=== PATIENT | male | born 1930 | race Caucasian/White ===

== ENCOUNTER 2016-05-01 11:08 | Emergency (ER) | payer MEDICARE, OTHER ==
[2016-05-01] MEDS ORDERED: cefTRIAXone(*) 1 GM in NS 0.9% 50 ML* 50 ML IVPB ONE (14:59)
[2016-05-01 15:06] LABS: Hematocrit 38 % (42-52); Mean Corpuscular HGB Conc 34 g/dl (31-36); Mean Corpuscular Hemoglobin 33 pg (27-31); Mean Corpuscular Volume 96 fL (80-94); Mean Platelet Volume 9 um3 (7.4-10.4); Red Blood Count 3.96 10^6/ul (4.0-5.4); Red Cell Distribution Width 13 % (10.5-15); White Blood Count 8.6 10^3/ul (3.5-10.8)
[2016-05-01 15:20] LABS: Albumin 4.3 g/dL (3.2-5.2); BUN/Creatinine Ratio 27.7 (8-20); Calcium 9.5 mg/dL (8.6-10.3); EGFR African American 97.9 (>60); EGFR Non-African American 76.1 (>60); Globulin 3.3 g/dL (2-4); Potassium 4.2 mmol/L (3.5-5.0); Total Bilirubin 0.7 mg/dL (0.2-1.0); Total Protein 7.6 g/dL (6.4-8.9)
[2016-05-01 15:22] LABS: Troponin I 0.01 ng/mL (<0.04)
--- NOTE | 2016-05-01 15:24 | RAD ---
INDICATION: Sepsis. COMPARISON: Comparison is made with a prior chest x-ray study from January 18, 2015. TECHNIQUE: A portable view of the chest was obtained. FINDINGS: Cardiac and mediastinal contours appear to be within normal limits. The lungs are underinflated and grossly clear. No pleural effusion is seen. IMPRESSION: EXPIRATORY EXAM, NO EVIDENCE FOR ACUTE FINDING.
[2016-05-01] MEDS ORDERED: ceFAZolin 1 GM VIAL(*) IVPB ONE (16:29)
[2016-05-01 17:41] VITALS: BP 117/75
[2016-05-01 19:00] LABS: Erythrocyte Sed Rate 24 mm/Hr (0-40)
--- NOTE | 2016-05-02 00:08 | ED ---
IRay,Danny, scribed for Mehrdad Yuan MD on 05/01/16 at 1631 . Throat Pain/Nasal Congestion - HPI Summary HPI Summary: This 86 y/o male presents to ED for gradually worsening left ear pain since 4 days ago. Pt reports positive erythema and edema at left ear as well as change in hearing. He was previously seen at [facility]. 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 He ears bilat hearing aide. Primary care involves Dr. Peña. - History of Current Complaint Chief Complaint: EDEarPain Time Seen by Provider: 05/01/16 14:44 Hx Obtained From: Patient, Family/Director Of Instructional Technology - present at bedside Onset/Duration: Gradual Onset Severity: Mild Associated Signs And Symptoms: Positive: Negative Cough: None - Allergies/Home Medications Allergies/Adverse Reactions: Allergies Allergy/AdvReac Type Severity Reaction Status Date / Time No Known Allergies Allergy Verified 12/06/15 11:24 PMH/Surg Hx/FS Hx/Imm Hx Cardiovascular History: Denies: Hx Hypertension, Hx Pacemaker/ICD, Other Cardiovascular Problems/ Disorders Respiratory History: Denies: Other Respiratory Problems/Disorders GI History: Reports: Hx Gastroesophageal Reflux Disease - OCCASSIONAL Sx, TAKES OMEPRAZOLE QHS Musculoskeletal History: Reports: Hx Arthritis - STATES MILD, NO PARTICULAR AREAS OF DISCOMFORT, Other Musculoskeletal History - SPINAL STENOSIS Sensory History: Reports: Hx Cataracts - LEFT EYE SURGERY PENDING, Hx Contacts or Glasses - READING GLASSES, Hx Hearing Aid - BILATERAL Opthamlomology History: Reports: Hx Cataracts - LEFT EYE SURGERY PENDING, Hx Contacts or Glasses - READING GLASSES Psychiatric History: Denies: Hx Panic Disorder - Cancer History Hx Chemotherapy: No - Surgical History Surgery Procedure, Year, and Place: LEFT KNEE [facility]; HERNIA REPAIR [facility] [place]; SHOULDER [facility] Hx Anesthesia Reactions: No Infectious Disease History: No Infectious Disease History: Denies: Traveled Outside the [place] in Last 30 Days - Family History Known Family History: Positive: Other - thyroid dz - Social History Lives: With Family Alcohol Use: Weekly Alcohol Amount: FEW DRINKS/WEEK Substance Use Type: Reports: None Smoking Status (MU): Never Smoked Tobacco Have You Smoked in the Last Year: No Review of Systems Negative: Fever Negative: Erythema Positive: Ear Ache - left sided, Other - "change in hearing" Negative: Chest Pain Negative: Shortness Of Breath, Cough Negative: Abdominal Pain, Nausea Negative: dysuria Positive: Edema - left ear. Negative: Myalgia Positive: Other - erythema at left ear Negative: Weakness Negative: Anxious, Depressed All Other Systems Reviewed And Are Negative: Yes Physical Exam - Summary Physical Exam Summary: Constitutional: Well-developed, Well-nourished, Alert. (-) Distressed Skin: Warm, Dry HENT: Normocephalic; Atraumatic. TM intact and external ear canal patent and normal at left ear. Eyes: Conjunctiva normal Neck: Musculoskeletal ROM normal neck. Lymph: (-) Cervical adenopathy Neuro: Alert, Oriented x3 Psych: Mood and affect Normal No salivary or parotid gland swelling. No pain with tugging on tragus. No ear erythema. Erythema of the left upper cheek/zygoma, no adenopathy. No trismus. EOMI without pain Triage Information Reviewed: Yes Vital Signs On Initial Exam: Initial Vitals Temp Pulse Resp BP Pulse Ox 97.6 F 55 16 146/61 100 05/01/16 11:10 05/01/16 11:10 05/01/16 11:10 05/01/16 11:10 05/01/16 11:10 Vital Signs Reviewed: Yes - [place] Coma Scale Coma Scale Total: 15 Diagnostics - Vital Signs Vital Signs Temp Pulse Resp BP Pulse Ox 05/01/16 13:04 97.7 F 55 20 146/69 100 05/01/16 12:27 98.8 F 88 20 130/60 96 05/01/16 11:10 97.6 F 55 16 146/61 100 - Laboratory Lab Results: Lab Results 05/01/16 05/01/16 05/01/16 Range/Units 14:50 14:50 14:50 WBC 8.6 (3.5-10.8) 10^3/ul RBC 3.96 L (4.0-5.4) 10^6/ul Hgb 13.0 L (14.0-18.0) g/dl Hct 38 L (42-52) % MCV 96 H (80-94) fL MCH 33 H (27-31) pg MCHC 34 (31-36) g/dl RDW 13 (10.5-15) % Plt Count 154 (150-450) 10^3/ul MPV 9 (7.4-10.4) um3 Neut % (Auto) 63.1 (38-83) % Lymph % (Auto) 25.8 (25-47) % [place] % (Auto) 9.7 H (1-9) % Eos % (Auto) 1.0 (0-6) % Baso % (Auto) 0.4 (0-2) % Absolute Neuts (auto) 5.4 (1.5-7.7) 10^3/ul Absolute Lymphs (auto) 2.2 (1.0-4.8) 10^3/ul Absolute Monos (auto) 0.8 (0-0.8) 10^3/ul Absolute Eos (auto) 0.1 (0-0.6) 10^3/ul Absolute Basos (auto) 0 (0-0.2) 10^3/ul Absolute Nucleated RBC 0 10^3/ul Nucleated RBC % 0 INR (Anticoag Therapy) 0.91 (0.89-1.11) APTT 24.8 L (26.0-36.3) seconds Sodium 136 (133-145) mmol/L Potassium 4.2 (3.5-5.0) mmol/L Chloride 103 (101-111) mmol/L Carbon Dioxide 27 (22-32) mmol/L Anion Gap 6 (2-11) mmol/L BUN 26 H (6-24) mg/dL Creatinine 0.94 (0.67-1.17) mg/dL Est GFR ( Amer) 97.9 (>60) Est GFR (Non-Af Amer) 76.1 (>60) BUN/Creatinine Ratio 27.7 H (8-20) Glucose 90 (70-100) mg/dL Lactic Acid (0.5-2.0) mmol/L Calcium 9.5 (8.6-10.3) mg/dL Total Bilirubin 0.70 (0.2-1.0) mg/dL AST 23 (13-39) U/L ALT 14 (7-52) U/L Alkaline Phosphatase 70 (34-104) U/L Troponin I 0.01 (<0.04) ng/mL Total Protein 7.6 (6.4-8.9) g/dL Albumin 4.3 (3.2-5.2) g/dL Globulin 3.3 (2-4) g/dL Albumin/Globulin Ratio 1.3 (1-3) 05/01/16 Range/Units 14:50 WBC (3.5-10.8) 10^3/ul RBC (4.0-5.4) 10^6/ul Hgb (14.0-18.0) g/dl Hct (42-52) % MCV (80-94) fL MCH (27-31) pg MCHC (31-36) g/dl RDW (10.5-15) % Plt Count (150-450) 10^3/ul MPV (7.4-10.4) um3 Neut % (Auto) (38-83) % Lymph % (Auto) (25-47) % [place] % (Auto) (1-9) % Eos % (Auto) (0-6) % Baso % (Auto) (0-2) % Absolute Neuts (auto) (1.5-7.7) 10^3/ul Absolute Lymphs (auto) (1.0-4.8) 10^3/ul Absolute Monos (auto) (0-0.8) 10^3/ul Absolute Eos (auto) (0-0.6) 10^3/ul Absolute Basos (auto) (0-0.2) 10^3/ul Absolute Nucleated RBC 10^3/ul Nucleated RBC % INR (Anticoag Therapy) (0.89-1.11) APTT (26.0-36.3) seconds Sodium (133-145) mmol/L Potassium (3.5-5.0) mmol/L Chloride (101-111) mmol/L Carbon Dioxide (22-32) mmol/L Anion Gap (2-11) mmol/L BUN (6-24) mg/dL Creatinine (0.67-1.17) mg/dL Est GFR ( Amer) (>60) Est GFR (Non-Af Amer) (>60) BUN/Creatinine Ratio (8-20) Glucose (70-100) mg/dL Lactic Acid 0.8 (0.5-2.0) mmol/L Calcium (8.6-10.3) mg/dL Total Bilirubin (0.2-1.0) mg/dL AST (13-39) U/L ALT (7-52) U/L Alkaline Phosphatase (34-104) U/L Troponin I (<0.04) ng/mL Total Protein (6.4-8.9) g/dL Albumin (3.2-5.2) g/dL Globulin (2-4) g/dL Albumin/Globulin Ratio (1-3) Result Diagrams: 05/01/16 14:50 05/01/16 14:50 Lab Statement: Any lab studies that have been ordered have been reviewed, and results considered in the medical decision making process. - Radiology CXR Xray Interpretation: No Acute Changes - Expiratory exam. No acute finding. EENT Course/Dx - Course Assessment/Plan: This 86 y/o male presents to ED with chief complaint of gradually worsening left ear pain since 4 days ago. PMHx does include skin CA at left ear lobe, and expresses concerns. Bloodwork indicates WBC and lactic acid wnl as well as slightly elevated BUN. Upon examination TM and external canal of left ear both appear normal. At this moment, there is no clinical sign of orbital cellulitis and CT image study is not warranted. Pt will be discharged with keflex and bactrim as well as outpatient f/u with his primary care provider. - Diagnoses Provider Diagnoses: Facial cellulitis Discharge - Discharge Plan Condition: Stable Disposition: HOME Prescriptions: Cephalexin CAP* [Keflex CAP*] 500 mg PO QID #40 cap Sulfamethox/Trimethoprim SS* [Bactrim SS 400/80 TAB*] 1 tab PO BID #20 tab Patient Education Materials: Cephalexin (By mouth), Sulfamethoxazole/ Trimethoprim (By mouth), Cellulitis (ED) Referrals: Brendan Peña MD [Primary Care Provider] - 2 Days Additional Instructions: Return to the emergency department for changing or worsening symptoms The documentation as recorded by the Ray medina Soohyun accurately reflects the service I personally performed and the decisions made by , Mehrdad Yuan MD.
[2016-05-02 08:07] LABS: C Reactive Protein 20.46 mg/L (< 5.00)
== END 2016-05-01 17:39 | disposition home or self-care (01) ==
LOC: ED 11:08
DX: L03.211 Cellulitis of face (principal); H92.02 Otalgia, left ear; L53.9 Erythematous condition, unspecified; Z85.820 Personal history of malignant melanoma of skin
CPT/HCPCS: 36415; 71010; 80053; 83605; 84484; 85025; 85610; 85652; 85730; 86140; 87040; 99285; J0690

== ENCOUNTER 2017-05-31 18:17 | Emergency (ER) | payer MEDICARE, OTHER ==
--- OUTSIDE RECORDS SUMMARY | 2017-05-31 19:08 | XMS REPORT ---
:1930 External Reference #:[id number] Author Organization [facility] Address [address] [place] [address] Phone [phone] Care Team Providers Name Role Phone Ike Chester III, MD Primary Care Physician Unavailable Payers Type Date Identification Numbers Payment Provider Subscriber Medicare Primary Effective: Policy Number: Medicare Saeid Muñoz 1995 [id number] PayID: [id number] [address] [place] [address] Medigap Part B Policy Number: [id number] [employer] Insurance Saeid Muñoz PayID: [id number] [address] [place] [address] Problems Date Description Provider Status Onset: 01/13/2015 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 Active Onset: 02/07/2015 Convalescence after surgery Riaz Post M.D. Active Onset: 08/17/2015 Localized, primary osteoarthritis Nelda Ortega M.D. Active Onset: 08/17/2015 Localized, primary osteoarthritis of the Nelda Ortega M.D. Active pelvic region and thigh Family History Date Family Member(s) Problem(s) Comments General cancer Social History Type Date Description Comments Marital Status Lives With Occupation [employer] Use Drinks 2 Alcoholic Beverages Per Week Smoking Patient has never smoked Recreational Drug Use Denies Drug Use Exercise Type/Frequency Exercises regularly Allergies, Adverse Reactions, Alerts Date Description Reaction Status Severity Comments 06/30/2013 NKDA active Medications Medication Date Status Form Strength Qnty SIG Indications Ordering Provider Flomax Active 8mg 1 bid Unknown 000 Aleve Active Capsules 220mg 2 by mouth Unknown 000 twice a day as needed Omeprazole Active Capsules 20mg 1 by mouth Unknown 000 DR every day Metamucil Active Powder 28.3% as Unknown 000 directed on package daily Vitamin D High Active Capsules 1000Unit 1 by mouth Unknown Potency 000 every day Finasteride Active Tablets 5mg 1 by mouth Unknown 000 every day Multi For Him Active Tablets 1 by mouth Unknown 50+ 000 every day Neomycin/Polym Active Solution 1% 4 drops in Unknown yxin/Hydrocort 000 affected isone (Otic) ear 3 times daily Ipratropium Active Solution 0.06% prn Unknown [place] Nasal 000 [place] Meloxicam Hx Tablets 15mg 60tabs 1 by mouth M16.11 Nelda 016 - every day Jordan, M.D. 017 Aspirin Low Hx Unknown Dose 000 - 015 Medications Administered in Office Medication Date Status Form Strength Qnty SIG Indications Ordering Provider Depomedrol Administered Injection Dirk Mili, 40MG 018 M.D. Depomedrol Administered Injection Dirk Mili, 80MG 012 M.D. Immunizations CPT Code Status Date Vaccine Lot # [id number] Given 01/08/2017 Influenza Virus Vaccine, Quadrivalent, Split, Preservative Free Vital Signs Date Vital Result Comment 05/27/2017 Weight 176.00 lb Heart Rate 79 /min BP Systolic Sitting 122 mmHg BP Diastolic Sitting 60 mmHg O2 % BldC Oximetry 92 % 05/20/2017 Weight 172.00 lb Heart Rate 74 /min BP Systolic 130 mmHg BP Diastolic 72 mmHg Body Temperature 97.9 F O2 % BldC Oximetry 96 % 04/24/2017 Height 68.5 inches 5'8.50" Weight 171.00 lb BP Systolic 120 mmHg BP Diastolic 68 mmHg Respiratory Rate 18 /min Body Temperature 97.2 F Pain Level 1 BMI (Body Mass Index) 25.6 kg/m2 03/21/2017 Height 68.5 inches 5'8.50" Weight 171.00 lb Heart Rate 60 /min BP Systolic Sitting 112 mmHg BP Diastolic Sitting 62 mmHg Body Temperature 98.1 F O2 % BldC Oximetry 98 % BMI (Body Mass Index) 25.6 kg/m2 08/14/2016 Height 68.50 inches 5'8.50" Weight 170.00 lb Heart Rate 58 /min BP Systolic 126 mmHg BP Diastolic 64 mmHg Body Temperature 97.6 F O2 % BldC Oximetry 97 % BMI (Body Mass Index) 25.5 kg/m2 08/17/2015 Height 71 inches 5'11" Weight 185.00 lb Pain Level 8 BMI (Body Mass Index) 25.8 kg/m2 02/28/2015 Height 71 inches 5'11" Weight 182.00 lb Heart Rate 58 /min BP Systolic Sitting 130 mmHg BP Diastolic Sitting 80 mmHg Pain Level 0 BMI (Body Mass Index) 25.4 kg/m2 02/07/2015 Height 71 inches 5'11" Weight 182.00 lb Heart Rate 56 /min BP Systolic Sitting 122 mmHg BP Diastolic Sitting 84 mmHg Pain Level 0 BMI (Body Mass Index) 25.4 kg/m2 01/13/2015 Height 71 inches 5'11" Weight 182.00 lb Heart Rate 54 /min BP Systolic Sitting 124 mmHg BP Diastolic Sitting 70 mmHg Pain Level 1 back/l leg BMI (Body Mass Index) 25.4 kg/m2 05/16/2011 Height 71 inches 5'11" Weight 180.00 lb Heart Rate 65 /min BP Systolic 135 mmHg BP Diastolic 63 mmHg BMI (Body Mass Index) 25.1 kg/m2 Results Test Date Test Result H/L Range Note CBC No Diff 01/18/2015 White Blood Count 6.0 10^3/uL 4.8-10.8 Red Blood Count 4.11 10^6/uL 4.0-5.4 Hemoglobin 13.0 g/dL Low 14.0-18.0 Hematocrit 40 % Low 42-52 Mean Corpuscular Volume 97 fL High 80-94 Mean Corpuscular Hemoglobin 32 pg High 27-31 Mean Corpuscular HGB Conc 33 g/dL 31-36 Red Cell Distribution Width 14 % 10.5-15 Platelet Count 182 10^3/uL 150-450 Mean Platelet Volume 9 um3 7.4-10.4 Basic Metabolic Panel 01/18/2015 Sodium 136 mmol/L 133-145 Potassium 4.5 mmol/L 3.5-5.0 Chloride 104 mmol/L 101-111 Co2 Carbon Dioxide 24 mmol/L 22-32 Anion Gap 8 mmol/L 2-11 Glucose 117 mg/dL High 70-100 Blood Urea Nitrogen 27 mg/dL High 6-24 Creatinine 1.05 mg/dL 0.67-1.17 BUN/Creatinine Ratio 25.7 High 8-20 Calcium 9.0 mg/dL 8.6-10.3 Egfr Non- 67.3 >60 Egfr 86.5 >60 1 1 Because ethnic data is not always readily available, this report includes an eGFR for both -Americans and non- Americans. The National Kidney Disease Education Program (NKDEP) does not endorse the use of the MDRD equation for patients that are not between the ages of 18 and 70, are , have extremes of body size, muscle mass, or nutritional status, or are non- or non-. According to the National Kidney Foundation, irrespective of diagnosis, the stage of the disease is based on the level of kidney function: Stage Description GFR(mL/min/1.73 m(2)) 1 Kidney damage with normal or decreased GFR 90 2 Kidney damage with mild decrease in GFR 60-89 3 Moderate decrease in GFR 30-59 4 Severe decrease in GFR 15-29 5 Kidney failure <15 (or dialysis) Procedures Date CPT Code Description Status 04/24/201748658 Inject/Drain Joint/Bursa Major Completed 01/25/2015 15518 Lopez/Facet/Foraminotomy;Vertebral Segment; Lumbar Completed 01/25/2015 02199 Laminotomy W/Decomp NRV RT,One Interspace,Lumbar Completed 01/18/2015 85992 EKG, Interpretation Only Completed 03/28/2012 52346 Rad Exam; Both Knees, Standing Ap Completed 03/28/201249395 Inject/Drain Joint/Bursa Major Completed 05/16/2011 17393 Xray Knee 3 Views Completed 05/16/2011 59830 Rad Exam; Knee, Ap&L Completed 05/16/2011 41130 Rad Exam; Hip Unilat Comp Completed 05/16/2011 31187 Rad Exam; Hip Unilat Completed 05/16/2011 21009 Rad Exam; Pelvis Completed Encounters Type Date Location Provider CPT E/M Dx Office Visit 05/20/2017 [facility] Internal Medicine Maryam gAuilar, 74564 S43.422A 1:10p - [address] [employer] Office Visit 04/24/2017 [facility] Iker Garces M.D. 41909 M17.12 3:00p Of C.M.A. Office Visit 03/21/2017 [facility] Internal Medicine Ike Chester, 88942 L98.9 2:40p - Roland Sutton Office Visit 08/14/2016 [facility] Internal Medicine Ike Chester, 20418 E03.9 1:40p - Roland Sutton K21.9 N40.0 Z85.828 Office Visit 08/17/2015 8:00a [facility] Of Nelda Ortega M.D. 18424 M16.11 C.M.A. M17.0 M25.551 M25.462 M25.562 Office Visit 01/13/2015 2:30p [facility] Riaz Post, 09531 M51.26 Of Pamela Sutton M48.06 Office Visit 03/28/2012 2:45p [facility] Of Iker Garces M.D. 67909 715.95 C.M.A. 715.96 Office Visit 05/16/2011 9:15a [facility] Of Iker Garces M.D. 18954 715.95 C.M.A. 715.95 715.96 716.95 724.4 715.96 719.45 716.96 Plan of Care No Information Available
--- OUTSIDE RECORDS SUMMARY | 2017-05-31 19:08 | XMS REPORT ---
:1930 External Reference #:[id number] Author Organization [facility] Address [address] [place] [address] Phone [phone] Care Team Providers Name Role Phone Ike Chester III, MD Primary Care Physician Unavailable Payers Type Date Identification Numbers Payment Provider Subscriber Medicare Primary Effective: Policy Number: Medicare Saeid Muñoz 1995 [id number] PayID: [id number] [address] [place] [address] Medigap Part B Policy Number: [id number] A[employer] Insurance Saeid Muñoz PayID: [id number] [address] [place] [address] Problems Date Description Provider Status Onset: 01/13/2015 [...] daily Ipratropium Active Solution 0.06% prn Unknown [place] Nasal 000 [place] Meloxicam Hx Tablets 15mg 60tabs 1 by mouth M16.11 Nelda 016 - every day Jordan, M.D. 017 Aspirin Low Hx Unknown Dose 000 - 015 Medications Administered in Office Medication Date Status Form Strength Qnty SIG Indications Ordering Provider Depomedrol Administered Injection Dirk Mili, 40MG 018 M.D. Depomedrol Administered Injection Dirk Mili, 80MG 012 M.D. Immunizations CPT Code Status Date Vaccine Lot # [id number] Given 01/08/2017 Influenza Virus Vaccine, Quadrivalent, Split, Preservative Free Vital Signs Date Vital Result Comment 05/20/2017 Weight 172.00 lb Heart Rate 74 [...] dialysis) Procedures Date CPT Code Description Status 04/24/201753844 Inject/Drain Joint/Bursa Major Completed 01/25/2015 15722 Lopez/Facet/Foraminotomy;Vertebral Segment; Lumbar Completed 01/25/2015 97099 Laminotomy W/Decomp NRV RT,One Interspace,Lumbar Completed 01/18/2015 62438 EKG, Interpretation Only Completed 03/28/2012 79291 Rad Exam; Both Knees, Standing Ap Completed 03/28/2012 84525 Inject/Drain Joint/Bursa Major Completed 05/16/2011 19465 Xray Knee 3 Views Completed 05/16/2011 46793 Rad Exam; Knee, Ap&L Completed 05/16/2011 33700 Rad Exam; Hip Unilat Comp Completed 05/16/2011 40341 Rad Exam; Hip Unilat Completed 05/16/2011 22952 Rad Exam; Pelvis Completed Encounters Type Date Location Provider CPT E/M Dx Office Visit 04/24/2017 [facility] Iker Garces M.D. 93657 M17.12 3:00p C.M.A. Office Visit 03/21/2017 [facility] Internal Medicine Ike Chester, 89891 L98.9 2:40p - Roland Sutton Office Visit 08/14/2016 [facility] Internal Medicine Ike Chester, 46575 E03.9 1:40p - Roland Sutton K21.9 N40.0 Z85.828 Office Visit 08/17/2015 8:00a [facility] Nelda Ortega M.D. 32772 M16.11 C.M.A. M17.0 M25.551 M25.462 M25.562 Office Visit 01/13/2015 2:30p [facility] Riaz Post, 85817 M51.26 Of Pamela Sutton M48.06 Office Visit 03/28/2012 2:45p [facility] Iker Garces M.D. 44346 715.95 C.M.A. 715.96 Office Visit 05/16/2011 9:15a [facility] Of Iker Garces M.D. 56750 715.95 C.M.A. 715.95 715.96 716.95 724.4 715.96 719.45 716.96 Plan of Care 05/20/2017 - Maryam Aguilar, NPS43.422A Sprain of left rotator cuff capsule, initial encounterComments:Try to ice the left shoulder area for 10 minutes 3 times a day and before bed.Try not to sleep on your left sideElevate your left handTake your Aleve twice a day for one week, take with food and liquidCall back if your symptoms do not improve, we may order Physical Therapy if needed
--- NOTE | 2017-05-31 21:49 | RAD ---
INDICATION: Pain and swelling. COMPARISON: None TECHNIQUE: Duplex interrogation of the left upperextremity was performed. FINDINGS: Deep veins: The visualized jugular, visualized subclavian, axial, brachial, radial, and ulnar are patent. There is normal compressibility, augmentation, and phasic flow. Superficial veins: The cephalic and basilic veins are patent There are no findings of superficial thrombophlebitis. Soft tissues:There are no soft tissue abnormalities. IMPRESSION: No evidence of deep venous thrombosis
[2017-05-31 22:32] LABS: ABS Basophils 0 10^3/ul (0-0.2); ABS Eosinophils 0.2 10^3/ul (0-0.6); ABS Lymphocytes 1.9 10^3/ul (1.0-4.8); ABS Monocytes 0.7 10^3/ul (0-0.8); ABS Nucleated RBC 0 10^3/ul; Eosinophil % 2.9 % (0-6); Hematocrit 34 % (42-52); Hemoglobin 11.2 g/dl (14.0-18.0); Lymphocyte % 32.7 % (25-47); Mean Corpuscular HGB Conc 33 g/dl (31-36); Mean Corpuscular Hemoglobin 31 pg (27-31); Mean Corpuscular Volume 93 fL (80-94); Mean Platelet Volume 8 um3 (7.4-10.4); Nucleated Red Blood Cells % 0; Platelet Count 192 10^3/ul (150-450); Red Blood Count 3.62 10^6/ul (4.0-5.4); Red Cell Distribution Width 13 % (10.5-15); White Blood Count 5.9 10^3/ul (3.5-10.8)
[2017-05-31 22:40] LABS: INR 0.9 (0.77-1.02)
[2017-05-31 22:47] LABS: EGFR Non-African American 66.8 (>60)
[2017-05-31] MEDS ORDERED: Iohexol 350* (CONTRAST) 500 ML MDV IV ONE (23:23)
[2017-06-01] MEDS ORDERED: Levofloxacin TAB* 500 MG PO ONE (01:28)
--- NOTE | 2017-06-01 02:08 | ED ---
David Melo Sixian, scribed for Dangelo Recinos on 05/31/17 at 2112 . Complex/Multi-Sys Presentation - HPI Summary HPI Summary: This patient is an 87 year old M presenting to ED with a chief complaint of swelling in the left hand since 1830 today. The CC is described as tingling sensation in the fingers. The patient rates the pain 0/10 in severity. Symptoms aggravated and alleviated by nothing. Patient reports tingling in left hand and sore shoulders. Patient denies CP, SOB, leg pain. The pt was told by Dr. Tobias to come to the ED for r/o blood clot because one of his blood test came back abnormal, the D-dimmer level was 616 at 1350 today. The pt reports previous swollen feet and ankles. - History Of Current Complaint Chief Complaint: EDGeneral Time Seen by Provider: 05/31/17 20:55 Hx Obtained From: Patient Onset/Duration: Gradual Onset, Lasting Hours, Still Present Timing: Constant, Hours Aggravating Factor(s): nothing Alleviating Factor(s): nothing Associated Signs And Symptoms: Positive: Chest Pain, Other - Patient reports tingling in left hand and sore shoulders. Patient denies CP, SOB, leg pain. - Allergies/Home Medications Allergies/Adverse Reactions: Allergies Allergy/AdvReac Type Severity Reaction Status Date / Time No Known Allergies Allergy Verified 12/06/15 11:24 Home Medications: Home Medications Cholecalciferol TAB* [Vitamin D TAB*] 1,000 unit PO DAILY 05/31/17 [History Confirmed 05/31/17] Finasteride TAB* [Proscar TAB*] 5 mg PO DAILY 05/31/17 [History Confirmed ] Psyllium RICARDO* [Metamucil RICARDO*] 1 pkt PO BID 05/31/17 [History Confirmed 05/31/17 ] PMH/Surg Hx/FS Hx/Imm Hx Cardiovascular History: Denies: Hx Hypertension, Hx Pacemaker/ICD, Other Cardiovascular Problems/ Disorders Respiratory History: Denies: Other Respiratory Problems/Disorders GI History: Reports: Hx Gastroesophageal Reflux Disease - OCCASSIONAL Sx, TAKES OMEPRAZOLE QHS Musculoskeletal History: Reports: Hx Arthritis - STATES MILD, NO PARTICULAR AREAS OF DISCOMFORT, Other Musculoskeletal History - SPINAL STENOSIS Sensory History: Reports: Hx Cataracts - LEFT EYE SURGERY PENDING, Hx Contacts or Glasses - READING GLASSES, Hx Hearing Aid - BILATERAL Opthamlomology History: Reports: Hx Cataracts - LEFT EYE SURGERY PENDING, Hx Contacts or Glasses - READING GLASSES Psychiatric History: Denies: Hx Panic Disorder - Cancer History Hx Chemotherapy: No - Surgical History Surgery Procedure, Year, and Place: LEFT KNEE [facility]; HERNIA REPAIR [facility]; SHOULDER [facility] Hx Anesthesia Reactions: No Infectious Disease History: No Infectious Disease History: Denies: Traveled Outside the [place] in Last 30 Days - Family History Known Family History: Positive: Other - thyroid dz - Social History Alcohol Use: Weekly Alcohol Amount: FEW DRINKS/WEEK Substance Use Type: Reports: None Smoking Status (MU): Never Smoked Tobacco Have You Smoked in the Last Year: No Review of Systems Negative: Fever Negative: Chest Pain Negative: Shortness Of Breath Positive: Other - NEGATIVE: leg pain. POSITIVE: tingling in left hand and sore shoulders All Other Systems Reviewed And Are Negative: Yes Physical Exam - Summary Physical Exam Summary: Appearance: Well appearing, no pain distress Skin: warm, dry, reflects adequate perfusion Head/face: normal Eyes: EOMI, RINA ENT: normal Neck: supple, non-tender Respiratory: CTA, breath sounds present Cardiovascular: RRR, pulses symmetrical Abdomen: non-tender, soft Bowel: present Musculoskeletal: normal, strength/ROM intact, swelling of left hand Neuro: normal, sensory motor intact, A&Ox3 Triage Information Reviewed: Yes Vital Signs On Initial Exam: Initial Vitals Temp Pulse Resp BP Pulse Ox 97.7 F 70 18 139/60 96 05/31/17 18:31 05/31/17 18:31 05/31/17 18:31 05/31/17 18:31 05/31/17 18:31 Vital Signs Reviewed: Yes Diagnostics - Vital Signs Vital Signs Temp Pulse Resp BP Pulse Ox 05/31/17 20:51 80 93 05/31/17 20:50 122/58 05/31/17 18:31 97.7 F 70 18 139/60 96 - Laboratory Lab Results: Lab Results 05/31/17 05/31/17 05/31/17 Range/Units 22:20 22:20 22:20 WBC 5.9 (3.5-10.8) 10^3/ul RBC 3.62 L (4.0-5.4) 10^6/ul Hgb 11.2 L (14.0-18.0) g/dl Hct 34 L (42-52) % MCV 93 (80-94) fL MCH 31 (27-31) pg MCHC 33 (31-36) g/dl RDW 13 (10.5-15) % Plt Count 192 (150-450) 10^3/ul MPV 8 (7.4-10.4) um3 Neut % (Auto) 51.7 (38-83) % Lymph % (Auto) 32.7 (25-47) % [place] % (Auto) 12.1 H (0-7) % Eos % (Auto) 2.9 (0-6) % Baso % (Auto) 0.6 (0-2) % Absolute Neuts (auto) 3.0 (1.5-7.7) 10^3/ul Absolute Lymphs (auto) 1.9 (1.0-4.8) 10^3/ul Absolute Monos (auto) 0.7 (0-0.8) 10^3/ul Absolute Eos (auto) 0.2 (0-0.6) 10^3/ul Absolute Basos (auto) 0 (0-0.2) 10^3/ul Absolute Nucleated RBC 0 10^3/ul Nucleated RBC % 0 INR (Anticoag Therapy) 0.90 (0.77-1.02) APTT 26.5 (26.0-36.3) seconds Sodium 135 (133-145) mmol/L Potassium 4.3 (3.5-5.0) mmol/L Chloride 103 (101-111) mmol/L Carbon Dioxide 27 (22-32) mmol/L Anion Gap 5 (2-11) mmol/L BUN 26 H (6-24) mg/dL Creatinine 1.05 (0.67-1.17) mg/dL Est GFR ( Amer) 85.9 (>60) Est GFR (Non-Af Amer) 66.8 (>60) BUN/Creatinine Ratio 24.8 H (8-20) Glucose 105 H (70-100) mg/dL Calcium 9.2 (8.6-10.3) mg/dL Total Bilirubin 0.40 (0.2-1.0) mg/dL AST 23 (13-39) U/L ALT 12 (7-52) U/L Alkaline Phosphatase 75 (34-104) U/L Total Protein 6.7 (6.4-8.9) g/dL Albumin 3.6 (3.2-5.2) g/dL Globulin 3.1 (2-4) g/dL Albumin/Globulin Ratio 1.2 (1-3) Result Diagrams: 05/31/17 22:20 05/31/17 22:20 Lab Statement: Any lab studies that have been ordered have been reviewed, and results considered in the medical decision making process. - CT CTA chest CT Interpretation Completed By: Radiologist - CT CTA chest reveals negative for pulmonary embolus, Negative for thoracic aortic aneurysm or dissection. However , there is a left lower lob infiltrate/pneumonia. Milder infiltrate notes in the medical aspect of the right lower lobe. Patchy minimal peripheral infiltrate notes in the lateral aspect of the right upper love. Some irregular pleural thickening Ieft upper love. Cardiomegaly. Indeterminate, 2.3 cm low density lesion in the dome of the liver. Recommend follow up to rule out neoplasm. Hiatal hernia. ED physician has reviewed this radiology report. - Additional Comments Diagnostic Additional Comments: The venous doppler study showed no evidence of deep venous thrombosis. ED physician has reviewed this radiology report. Complex Multi-Symp Course/Dx Assessment/Plan: This patient is an 87 year old M presenting to ED with a chief complaint of swelling in the left hand since 1830 today. Radiology included a Venous Doppler study which showed no evidence of deep venous thrombosis and a chest CTA which reveals negative for pulmonary embolus, Negative for thoracic aortic aneurysm or dissection. However, there is a left lower lob infiltrate/ pneumonia. Milder infiltrate notes in the medical aspect of the right lower lobe. Patchy minimal peripheral infiltrate notes in the lateral aspect of the right upper love. Some irregular pleural thickening Ieft upper love. Cardiomegaly. Indeterminate, 2.3 cm low density lesion in the dome of the liver. Recommend follow up to rule out neoplasm. Hiatal hernia. ED physician has reviewed this radiology report. Bloodwork was obtained. The patient is diagnosed with pneumonia. The patient is instructed to follow up with primary care. Pt was informed about the mass on his liver and to follow up as an outpatient. - Diagnoses Differential Diagnoses/HQI/PQRI: Other - r/o pe Provider Diagnoses: Pneumonia Discharge - Discharge Plan Condition: Stable Disposition: HOME Prescriptions: Levofloxacin TAB* [Levaquin TAB*] 500 mg PO DAILY #9 tab Patient Education Materials: Pneumonia (ED) Referrals: Ike Chester MD [Primary Care Provider] - 3 Days Additional Instructions: RETURN TO THE EMERGENCY DEPARTMENT FOR CHANGING OR WORSENING SYMPTOMS. The documentation as recorded by the David medina Sixian accurately reflects the service I personally performed and the decisions made by Grisel crespo Emmanuel.
[2017-06-01 02:20] VITALS: BP 00/00
--- NOTE | 2017-06-01 09:04 | RAD ---
Indication: Positive d-dimer. Contrast: Administered 68.3 ml of OMNIPAQUE 350 mg/ml CTA of the chest was performed after IV contrast administration. Coronal and sagittal reconstructed images were obtained. The pulmonary arterial tree is well opacified. There are no filling defects present to suggest pulmonary embolus. The aorta demonstrates no aortic dissection or aneurysmal dilatation. Atherosclerotic aorta is noted. There is no significant mediastinal or hilar adenopathy. Inferior thyroid lobes are unremarkable. The lung valdovinos demonstrate some scarring in the periphery of the left upper lobe and right upper lobe. Airspace disease with alveolitis is noted in the left lower lobe posteriorly. There is poor inspiration. The heart demonstrates no pericardial effusion. The liver demonstrates 2.0 cm low density lesion in the dome of the right lobe of liver. Correlation with ultrasound of the liver is suggested. No intrahepatic ductal dilation is noted. The spleen is normal in size. No adrenal lesions are noted. Calcified granuloma is noted. IMPRESSION: Left lower lobe airspace disease consistent with left lower lobe pneumonia. No mediastinal or hilar pathology is noted. Liver lesion is noted in the dome of right lobe of liver for which ultrasound is suggested. No evidence of embolus or aortic dissection is noted.
== END 2017-06-01 02:27 | disposition home or self-care (01) ==
LOC: ED 18:17
DX: J18.9 Pneumonia, unspecified organism (principal); R07.9 Chest pain, unspecified
CPT/HCPCS: 36415; 71275; 80053; 85025; 85610; 85730; 99283; Q9967

== ENCOUNTER 2017-06-26 21:12 | Observation (INO) | payer MEDICARE, OTHER ==
[2017-06-26] MEDS ORDERED: NS 0.9% 1000 ML*IV.FLUID IV ONE (22:12)
[2017-06-26] MEDS ORDERED: Acetaminophen TAB* 325 MG PO ONE (22:12)
[2017-06-26] MEDS ORDERED: Ibuprofen TAB* 600 MG PO ONE (22:13)
[2017-06-26] MEDS ORDERED: Hydrocortisone INJ* 100 MG VIAL IV ONE (22:14)
[2017-06-26] MEDS ORDERED: Piperacillin/Tazobac ADVAN(*) 3.375 GM in NS 0.9% 100 ML* 100 ML IVPB ONE (22:14)
--- OUTSIDE RECORDS SUMMARY | 2017-06-26 22:51 | XMS REPORT ---
:1930 External Reference #:[id number] Author Organization [facility] Address [address] [place] [address] Phone [phone] Care Team Providers Name Role Phone Ike Chester III, MD Primary Care Physician Unavailable Payers Type Date Identification Numbers Payment Provider Subscriber Medicare Primary Effective: Policy Number: Medicare Saeid Muñoz 1995 [id number] PayID: [id number] [address] [place] [address] Medigap Part B Policy Number: [id number] [employer] Saeid Muñoz PayID: [id number] [address] [place] [address] Problems Date Description Provider Status Onset: 01/13/2015 [...] Form Strength Qnty SIG Indications Ordering Provider Levothyroxine 06/05/ Active Tablets 25mcg 45tabs 1 by mouth E03.9 Ike Andrews Sodium 2018 every day Lesley Chester Prednisone 06/05/ Active Tablets 20mg 20tabs 1 by mouth R60.0 Ike Andrews 2018 every day Lesley Chester Flomax / Active 8mg 1 bid Unknown 0000 Omeprazole / Active Capsules 20mg 1 by mouth Unknown 0000 DR every day Metamucil / Active Powder 28.3% as Unknown 0000 directed on package daily Vitamin D High / Active Capsules 1000Unit 1 by mouth Unknown Potency 0000 every day Finasteride / Active Tablets 5mg 1 by mouth Unknown 0000 every day Multi For Him / Active Tablets 1 by mouth Unknown 50+ 0000 every day Neomycin/Polymy / Active Solution 1% 4 drops in Unknown fior/Hydrocortis 0000 affected one (Otic) ear 3 times daily Ipratropium / Active Solution 0.06% prn Unknown [place] Nasal 0000 [place] Levofloxacin / Active Tablets 500mg Take 1 Unknown 0000 Tablet By Mouth Every Day Motrin Ib / Active Tablets 200mg 1-2 twice Unknown 0000 a day as needed Meloxicam 08/16/ Hx Tablets 15mg 60tabs 1 by mouth M16.11 Nelda 2015 - every day Jordan 03/20/ M.DJose Alfredo 2017 Aspirin Low / Hx Unknown Dose 0000 - 2014 Aleve / Hx Capsules 220mg 2 by mouth Unknown 0000 - twice a 06/05/ day as 2018 needed Medications Administered in Office Medication Date Status Form Strength Qnty SIG Indications Ordering Provider Depomedrol Administered Injection Dirk Mili, 40MG 018 M.D. Depomedrol Administered Injection Dirk Mili, 80MG 012 M.D. Immunizations CPT Code Status Date Vaccine Lot # [id number] Given 01/08/2017 Influenza Virus Vaccine, Quadrivalent, Split, Preservative Free Vital Signs Date Vital Result Comment 06/05/2017 Weight 175.00 lb Heart Rate 57 /min BP Systolic Sitting 138 mmHg BP Diastolic Sitting 50 mmHg Body Temperature 97.2 F O2 % BldC Oximetry 93 % 05/27/2017 Weight 176.00 lb Heart Rate 79 [...] Test Date Test Result H/L Range Note Laboratory test finding 05/31/2017 Centromere Auto Abs <0.2 U 1 Ribosome P Antibodies, Igg <0.2 U 2 Anti Double Stranded Dna Ab 16.0 IU/mL 3 Interpretation See Comment 4 Trini Igg AB Reflex 05/31/2017 SS-A/Ro Antibody <0.2 U 5 SS-B/La Antibody <0.2 U 6 Sm (Reese) IgG Antibody <0.2 U 7 U1-nRNP Antibody 0.4 U 8 Scl-70 (Scleroderma) Antibody <0.2 U 9 Hawa-1 Antibody <0.2 U 10 Laboratory test 05/31/2017 D Dimer Quantitative 616 ng/mL High Less Than 230 11 finding CBC Auto Diff 05/31/2017 White Blood Count 7.1 10^3/uL 3.5-10.8 Red Blood Count 3.78 10^6/uL Low 4.0-5.4 Hemoglobin 11.8 g/dL Low 14.0-18.0 Hematocrit 35 % Low 42-52 Mean Corpuscular Volume 94 fL 80-94 Mean Corpuscular Hemoglobin 31 pg 27-31 Mean Corpuscular HGB Conc 33 g/dL 31-36 Red Cell Distribution Width 13 % 10.5-15 Platelet Count 197 10^3/uL 150-450 Mean Platelet Volume 9 um3 7.4-10.4 Abs Neutrophils 5.0 10^3/uL 1.5-7.7 Abs Lymphocytes 1.4 10^3/uL 1.0-4.8 Abs Monocytes 0.6 10^3/uL 0-0.8 Abs Eosinophils 0.1 10^3/uL 0-0.6 Abs Basophils 0 10^3/uL 0-0.2 Abs Nucleated RBC 0 10^3/uL Granulocyte % 70.8 % 38-83 Lymphocyte % 19.8 % Low 25-47 Monocyte % 7.9 % High 0-7 Eosinophil % 0.9 % 0-6 Basophil % 0.6 % 0-2 Nucleated Red Blood Cells % 0 Laboratory test finding 05/31/2017 Lyme Disease Serology Negative Negative 12 Uric Acid 8.4 mg/dL High 4.4-7.6 Connective Tissue Panel 05/31/2017 Anti-Nuclear Antibody 3.2 U High 13 Cyclic Citrullinated Peptide <15.6 U 14 Comp Metabolic Panel 05/31/2017 Sodium 135 mmol/L 133-145 Potassium 4.3 mmol/L 3.5-5.0 Chloride 103 mmol/L 101-111 Co2 Carbon Dioxide 27 mmol/L 22-32 Anion Gap 5 mmol/L 2-11 Glucose 105 mg/dL High 70-100 Blood Urea Nitrogen 26 mg/dL High 6-24 Creatinine 1.05 mg/dL 0.67-1.17 BUN/Creatinine Ratio 24.8 High 8-20 Calcium 9.2 mg/dL 8.6-10.3 Total Protein 6.7 g/dL 6.4-8.9 Albumin 3.6 g/dL 3.2-5.2 Globulin 3.1 g/dL 2-4 Albumin/Globulin Ratio 1.2 1-3 Total Bilirubin 0.40 mg/dL 0.2-1.0 Alkaline Phosphatase 75 U/L 34-104 Alt 12 U/L 7-52 Ast 23 U/L 13-39 Egfr Non- 66.8 >60 Egfr 85.9 >60 15 Laboratory test finding 05/31/2017 Partial Thrombo Time 26.5 seconds 26.0 -36.3 PTT Inr/Protime 05/31/2017 Inr 0.90 0.77-1.02 CBC Auto Diff 05/31/2017 White Blood Count 5.9 10^3/uL 3.5-10.8 Red Blood Count 3.62 10^6/uL Low 4.0-5.4 Hemoglobin 11.2 g/dL Low 14.0-18.0 Hematocrit 34 % Low 42-52 Mean Corpuscular Volume 93 fL 80-94 Mean Corpuscular Hemoglobin 31 pg 27-31 Mean Corpuscular HGB Conc 33 g/dL 31-36 Red Cell Distribution Width 13 % 10.5-15 Platelet Count 192 10^3/uL 150-450 Mean Platelet Volume 8 um3 7.4-10.4 Abs Neutrophils 3.0 10^3/uL 1.5-7.7 Abs Lymphocytes 1.9 10^3/uL 1.0-4.8 Abs Monocytes 0.7 10^3/uL 0-0.8 Abs Eosinophils 0.2 10^3/uL 0-0.6 Abs Basophils 0 10^3/uL 0-0.2 Abs Nucleated RBC 0 10^3/uL Granulocyte % 51.7 % 38-83 Lymphocyte % 32.7 % 25-47 Monocyte % 12.1 % High 0-7 Eosinophil % 2.9 % 0-6 Basophil % 0.6 % 0-2 Nucleated Red Blood Cells % 0 Laboratory test finding 05/27/2017 B-Type Natriuretic Peptide BNP 61 pg/mL 16 Erythrocyte Sed Rate 47 mm/Hr High 0-40 C Reactive Protein 17.92 mg/L High < 5.00 17 Comp Metabolic Panel 05/27/2017 Sodium 135 mmol/L 133-145 Potassium 4.5 mmol/L 3.5-5.0 Chloride 101 mmol/L 101-111 Co2 Carbon Dioxide 26 mmol/L 22-32 Anion Gap 8 mmol/L 2-11 Glucose 87 mg/dL 70-100 Blood Urea Nitrogen 26 mg/dL High 6-24 Creatinine 0.96 mg/dL 0.67-1.17 BUN/Creatinine Ratio 27.1 High 8-20 Calcium 9.4 mg/dL 8.6-10.3 Total Protein 7.0 g/dL 6.4-8.9 Albumin 3.9 g/dL 3.2-5.2 Globulin 3.1 g/dL 2-4 Albumin/Globulin Ratio 1.3 1-3 Total Bilirubin 0.60 mg/dL 0.2-1.0 Alkaline Phosphatase 84 U/L 34-104 Alt 14 U/L 7-52 Ast 23 U/L 13-39 Egfr Non- 74.1 >60 Egfr 95.3 >60 18 Laboratory test finding 05/27/2017 TSH (Thyroid Stim 7.77 mcIU/mL High 0.34-5.60 Horm) Free T4 (Free Thyroxine) 0.79 ng/dL 0.61-1.12 CBC No Diff 01/18/2015 White Blood Count [...] Egfr Non- 67.3 >60 Egfr 86.5 >60 19 1 REFERENCE VALUE <1.0 (Negative) Test Performed by: [place] [id number] 2 REFERENCE VALUE <1.0 (Negative) Test Performed by: [place] [id number] 3 Negative for dsDNA antibody by enzyme immunoassay. No further testing recommended. 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 Test Performed by: [address] [id number] 5 REFERENCE VALUE <1.0 (Negative) 6 REFERENCE VALUE <1.0 (Negative) 7 REFERENCE VALUE <1.0 (Negative) 8 REFERENCE VALUE <1.0 (Negative) 9 REFERENCE VALUE <1.0 (Negative) 10 REFERENCE VALUE <1.0 (Negative) Test Performed by: [facility] [address] [place] [address] 11 Please note: The following may produce a false positive D Dimer test: - Rheumatoid factor greater than 60 IU/ml - Plasma hemoglobin greater than 0.05 gm/dl - Bilirubin greater than 50 mg/dl - Lipids greater than 1000 mg/dl - FDP greater than 20 ug/ml 12 Serologic response to B. burgdorferi infection is not detected, but cannot rule out early infection during which low or undetectable antibody levels to B. burgdorferi may be present. If clinically indicated, a new serum specimen should be submitted in 7-14 days. Test Performed by: [facility] [employer] [facility] [address] [place] [address] 13 Interpretation: Positive (3.0-5.9) REFERENCE VALUE <=1.0 (Negative) 14 REFERENCE VALUE <20.0 (Negative) Test Performed by: [address] [address] 15 Because ethnic data is not always readily [...] 15-29 5 Kidney failure <15 (or dialysis) 16 >100 to <200 pg/mL: likely compensated congestive heart failure (CHF) 200 to 400 pg/mL: likely moderate CHF >400 pg/mL: likely moderate to severe CHF 17 Acute inflammation: >10.00 18 Because ethnic data is not always readily [...] 15-29 5 Kidney failure <15 (or dialysis) 19 Because ethnic data is not always readily [...] dialysis) Procedures Date CPT Code Description Status 04/24/201763895 Inject/Drain Joint/Bursa Major Completed 01/25/2015 52564 Lopez/Facet/Foraminotomy;Vertebral Segment; Lumbar Completed 01/25/2015 82078 Laminotomy W/Decomp NRV RT,One Interspace,Lumbar Completed 01/18/2015 51763 EKG, Interpretation Only Completed 03/28/2012 42827 Rad Exam; Both Knees, Standing Ap Completed 03/28/2012 28528 Inject/Drain Joint/Bursa Major Completed 05/16/2011 49724 Xray Knee 3 Views Completed 05/16/2011 43888 Rad Exam; Knee, Ap&L Completed 05/16/2011 40352 Rad Exam; Hip Unilat Comp Completed 05/16/2011 90659 Rad Exam; Hip Unilat Completed 05/16/2011 46441 Rad Exam; Pelvis Completed Encounters Type Date Location Provider CPT E/M Dx Office Visit 05/27/2017 11:40a [facility] Internal Medicine Ike Chester, 45717 R60.0 - Roland Sutton E03.9 Office Visit 05/20/2017 1:10p [facility] Internal Maryam Aguilar, 49840 S43.422A Medicine - [address] APPOINTMENT MANAGER Office Visit 04/24/2017 3:00p [facility] Iker Garces M.D. 31683 M17.12 Of C.M.A. Office Visit 03/21/2017 2:40p [facility] Internal Ike Chester, 58312 L98.9 Marquita Watkins M.D. Office Visit 08/14/2016 1:40p [facility] Internal Ike Chester, 05071 E03.9 Marquita Watkins M.D. K21.9 N40.0 Z85.828 Office Visit 08/17/2015 8:00a [facility] Of Nelda Ortega M.D. 40212 M16.11 C.M.A. M17.0 M25.551 M25.462 M25.562 Office Visit 01/13/2015 2:30p [facility]surgery Services Riaz Fierrocalf, 36325 M51.26 Of Pamela Sutton M48.06 Office Visit 03/28/2012 2:45p [facility] Of Iker Garces M.D. 66387 715.95 C.M.A. 715.96 Office Visit 05/16/2011 9:15a [facility] Of Iker Garces M.D. 80960 715.95 C.M.A. 715.95 715.96 716.95 724.4 715.96 719.45 716.96 Plan of Care Future Appointment(s):07/04/2017 9:00 am - Ike Chester M.D. at [facility] Internal Medicine - Nunkwdczt47/28/2018 - Ike Chester M.D.R60.0 Localized edemaNew Medication:Prednisone 20 mgReferral:Fransisco Rodrigues MD, KowleuomhxmuJ07.9 Hypothyroidism, unspecifiedNew Medication:Levothyroxine Sodium 25 mcgNew Labs:Free T4 (Free Thyroxine)TSH (Thyroid Stim Horm)Follow up: Start low dose replacement Rx and recheck thyroid labs in 4 wisevK93.2 Abnormal findings on dx imaging of liver and biliary tractNew Xrays:Chest PA & Lat 2 VWSUS Abdomen CompleteComments:? liver lesion on CT and ? LLL infiltrate; pt on antibiotic Rx now. Check abd ultrasound for the liver and pt's previous L sided kidney stone. Recheck CXR in 1 month
[2017-06-26 23:24] LABS: Urine Appearance Clear; Urine Blood Negative (Negative); Urine Color Yellow; Urine Ketones Negative (Negative); Urine Protein Negative (Negative); Urine Specific Gravity 1.015 (1.010-1.030); Urine Urobilinogen Negative (Negative)
[2017-06-26 23:37] LABS: ABS Basophils 0 10^3/ul (0-0.2); ABS Eosinophils 0 10^3/ul (0-0.6); ABS Lymphocytes 1.1 10^3/ul (1.0-4.8); ABS Monocytes 0.7 10^3/ul (0-0.8); ABS Neutrophils 7.2 10^3/ul (1.5-7.7); ABS Nucleated RBC 0 10^3/ul; Eosinophil % 0.1 % (0-6); Hematocrit 37 % (42-52); Hemoglobin 12.4 g/dl (14.0-18.0); Lymphocyte % 12.5 % (25-47); Mean Corpuscular HGB Conc 33 g/dl (31-36); Mean Corpuscular Hemoglobin 31 pg (27-31); Mean Corpuscular Volume 94 fL (80-94); Mean Platelet Volume 8.8 um3 (7.4-10.4); Nucleated Red Blood Cells % 0.1; Platelet Count 124 10^3/ul (150-450); Red Blood Count 3.96 10^6/ul (4.0-5.4); Red Cell Distribution Width 14 % (10.5-15)
[2017-06-26 23:40] LABS: EGFR Non-African American 57.3 (>60); INR 0.95 (0.77-1.02)
[2017-06-26] MEDS ORDERED: Oseltamivir CAP* 75 MG CAP PO ONE (23:54)
--- NOTE | 2017-06-27 00:17 | ED ---
Aidee Melo Rebecca, scribed for Austen Troncoso MD on 06/27/17 at 0003 . Shortness of Breath - HPI Summary HPI Summary: Pt is an 87 y/o M who presents to ED c/o SOB. reports that a few weeks ago , the pt was diagnosed with PNA without necessitating admission. Then, a few days ago he and his both became ill with a "cold." This afternoon, the pt began experiencing chills, SOB and visual hallucinations while being "incoherent." Sx aggravated and alleviated by nothing. Denies V/D and any pain. remarks that usually the pt has no issues with mentation. Pt was also treated a few weeks ago for swelling in the extremities which was treated with 20 mg Prednisone which has now been tapered down to 10 mg, with the last dose having been taken this morning. - History of Current Complaint Chief Complaint: EDShortnessOfBreath Time Seen by Provider: 06/26/17 22:11 Hx Obtained From: Patient, Family/Hide And Skin Classer - Onset/Duration: Lasting Hours, Still Present Dyspnea At: Rest Aggrevating Factors: Nothing Alleviating Factors: Nothing Associated Signs & Symptoms: Chills - Allergy/Home Medications Allergies/Adverse Reactions: Allergies Allergy/AdvReac Type Severity Reaction Status Date / Time No Known Allergies Allergy Verified 12/06/15 11:24 Home Medications: Home Medications Naproxen Sodium [Aleve] 220 mg PO BID 06/26/17 [History Confirmed 06/26/17] Omeprazole CAP* [Prilosec CAP* 20 MG] 20 mg PO DAILY 06/26/17 [History Confirmed 06/26/17] predniSONE TAB* [Deltasone TAB*] 10 mg PO DAILY 06/26/17 [History Confirmed ] PMH/Surg Hx/FS Hx/Imm Hx Endocrine/Hematology History: Denies: Hx Diabetes Cardiovascular History: Denies: Hx Hypertension, Hx Pacemaker/ICD, Other Cardiovascular Problems/ Disorders Respiratory History: Denies: Other Respiratory Problems/Disorders GI History: Reports: Hx Gastroesophageal Reflux Disease - OCCASSIONAL Sx, TAKES OMEPRAZOLE QHS History: Denies: Hx Renal Disease Musculoskeletal History: Reports: Hx Arthritis - STATES MILD, NO PARTICULAR AREAS OF DISCOMFORT, Other Musculoskeletal History - SPINAL STENOSIS Sensory History: Reports: Hx Cataracts - LEFT EYE SURGERY PENDING, Hx Contacts or Glasses - READING GLASSES, Hx Hearing Aid - BILATERAL Opthamlomology History: Reports: Hx Cataracts - LEFT EYE SURGERY PENDING, Hx Contacts or Glasses - READING GLASSES Psychiatric History: Denies: Hx Panic Disorder - Cancer History Hx Chemotherapy: No - Surgical History Surgery Procedure, Year, and Place: LEFT KNEE [facility]; HERNIA REPAIR [facility] [place]; SHOULDER [facility] Hx Anesthesia Reactions: No Infectious Disease History: No Infectious Disease History: Denies: Traveled Outside the [place] in Last 30 Days - Family History Known Family History: Positive: Other - thyroid dz - Social History Alcohol Use: Weekly Alcohol Amount: FEW DRINKS/WEEK Substance Use Type: Reports: None Smoking Status (MU): Never Smoked Tobacco Have You Smoked in the Last Year: No Review of Systems Positive: Chills Positive: Shortness Of Breath Negative: Vomiting, Diarrhea Positive: Other - NEGATIVE: Pain Neurological: Other - Visual hallucinations; "incoherent" All Other Systems Reviewed And Are Negative: Yes Physical Exam - Summary Physical Exam Summary: VITAL SIGNS: Reviewed. GENERAL: ~Patient is an elderly male who is lying comfortable in the stretcher. Patient is not in any acute respiratory distress. HEAD AND FACE: No signs of trauma. No ecchymosis, hematomas or skull depressions. No sinus tenderness. EYES: PERRLA, EOMI x 2, No injected conjunctiva, no nystagmus. EARS: Hearing grossly intact. Ear canals and tympanic membranes are within normal limits. MOUTH: Oropharynx within normal limits. NECK: Supple, trachea is midline, no adenopathy, no JVD, no carotid bruit, no c- spine tenderness, neck with full ROM. CHEST: Symmetric, no tenderness at palpation LUNGS: Clear to auscultation bilaterally. No wheezing or crackles. Decreased breath sounds bilaterally. CVS: Regular rhythm, tachycardic, S1 and S2 present, no murmurs or gallops appreciated. ABDOMEN: Soft, non-tender. No signs of distention. No rebound no guarding, and no masses palpated. Bowel sounds are normal. EXTREMITIES: FROM in all major joints, no edema, no cyanosis or clubbing. NEURO: Alert and oriented x 3. No acute neurological deficits. Speech is normal and follows commands. SKIN: Dry and warm Triage Information Reviewed: Yes Vital Signs On Initial Exam: Initial Vitals Temp Pulse Resp BP Pulse Ox 103.1 F 100 20 129/66 97 06/26/17 21:21 06/26/17 21:21 06/26/17 21:21 06/26/17 21:21 06/26/17 21:21 Vital Signs Reviewed: Yes Diagnostics - Vital Signs Vital Signs Temp Pulse Resp BP Pulse Ox 06/26/17 21:22 15 129/66 06/26/17 21:21 103.1 F 100 20 129/66 97 - Laboratory Lab Results: Lab Results 06/26/17 06/26/17 06/26/17 Range/Units 22:53 23:01 23:01 WBC (3.5-10.8) 10^3/ul RBC (4.0-5.4) 10^6/ul Hgb (14.0-18.0) g/dl Hct (42-52) % MCV (80-94) fL MCH (27-31) pg MCHC (31-36) g/dl RDW (10.5-15) % Plt Count (150-450) 10^3/ul MPV (7.4-10.4) um3 Neut % (Auto) (38-83) % Lymph % (Auto) (25-47) % [place] % (Auto) (0-7) % Eos % (Auto) (0-6) % Baso % (Auto) (0-2) % Absolute Neuts (auto) (1.5-7.7) 10^3/ul Absolute Lymphs (auto) (1.0-4.8) 10^3/ul Absolute Monos (auto) (0-0.8) 10^3/ul Absolute Eos (auto) (0-0.6) 10^3/ul Absolute Basos (auto) (0-0.2) 10^3/ul Absolute Nucleated RBC 10^3/ul Nucleated RBC % INR (Anticoag Therapy) 0.95 (0.77-1.02) APTT 18.1 L (26.0-36.3) seconds Sodium 134 (133-145) mmol/L Potassium 4.2 (3.5-5.0) mmol/L Chloride 101 (101-111) mmol/L Carbon Dioxide 25 (22-32) mmol/L Anion Gap 8 (2-11) mmol/L BUN 26 H (6-24) mg/dL Creatinine 1.20 H (0.67-1.17) mg/dL Est GFR ( Amer) 73.7 (>60) Est GFR (Non-Af Amer) 57.3 (>60) BUN/Creatinine Ratio 21.7 H (8-20) Glucose 85 (70-100) mg/dL Lactic Acid (0.5-2.0) mmol/L Calcium 8.8 (8.6-10.3) mg/dL Total Bilirubin 0.40 (0.2-1.0) mg/dL AST 18 (13-39) U/L ALT 13 (7-52) U/L Alkaline Phosphatase 60 (34-104) U/L Total Creatine Kinase 67 (10-223) U/L Troponin I 0.03 (<0.04) ng/mL C-Reactive Protein 29.17 H (< 5.00) mg/L Total Protein 6.7 (6.4-8.9) g/dL Albumin 3.7 (3.2-5.2) g/dL Globulin 3.0 (2-4) g/dL Albumin/Globulin Ratio 1.2 (1-3) Urine Color Yellow Urine Appearance Clear Urine pH 8.0 (5-9) Ur Specific Rake 1.015 (1.010-1.030) Urine Protein Negative (Negative) Urine Ketones Negative (Negative) Urine Blood Negative (Negative) Urine Nitrate Negative (Negative) Urine Bilirubin Negative (Negative) Urine Urobilinogen Negative (Negative) Ur Leukocyte Esterase Negative (Negative) Urine Glucose Negative (Negative) Influenza A (Rapid) (Negative) Influenza B (Rapid) (Negative) 06/26/17 06/26/17 06/26/17 Range/Units 23:01 23:01 23:08 WBC 9.0 (3.5-10.8) 10^3/ul RBC 3.96 L (4.0-5.4) 10^6/ul Hgb 12.4 L (14.0-18.0) g/dl Hct 37 L (42-52) % MCV 94 (80-94) fL MCH 31 (27-31) pg MCHC 33 (31-36) g/dl RDW 14 (10.5-15) % Plt Count 124 L (150-450) 10^3/ul MPV 8.8 (7.4-10.4) um3 Neut % (Auto) 79.7 (38-83) % Lymph % (Auto) 12.5 L (25-47) % [place] % (Auto) 7.6 H (0-7) % Eos % (Auto) 0.1 (0-6) % Baso % (Auto) 0.1 (0-2) % Absolute Neuts (auto) 7.2 (1.5-7.7) 10^3/ul Absolute Lymphs (auto) 1.1 (1.0-4.8) 10^3/ul Absolute Monos (auto) 0.7 (0-0.8) 10^3/ul Absolute Eos (auto) 0 (0-0.6) 10^3/ul Absolute Basos (auto) 0 (0-0.2) 10^3/ul Absolute Nucleated RBC 0 10^3/ul Nucleated RBC % 0.1 INR (Anticoag Therapy) (0.77-1.02) APTT (26.0-36.3) seconds Sodium (133-145) mmol/L Potassium (3.5-5.0) mmol/L Chloride (101-111) mmol/L Carbon Dioxide (22-32) mmol/L Anion Gap (2-11) mmol/L BUN (6-24) mg/dL Creatinine (0.67-1.17) mg/dL Est GFR ( Amer) (>60) Est GFR (Non-Af Amer) (>60) BUN/Creatinine Ratio (8-20) Glucose (70-100) mg/dL Lactic Acid 1.4 (0.5-2.0) mmol/L Calcium (8.6-10.3) mg/dL Total Bilirubin (0.2-1.0) mg/dL AST (13-39) U/L ALT (7-52) U/L Alkaline Phosphatase (34-104) U/L Total Creatine Kinase (10-223) U/L Troponin I (<0.04) ng/mL C-Reactive Protein (< 5.00) mg/L Total Protein (6.4-8.9) g/dL Albumin (3.2-5.2) g/dL Globulin (2-4) g/dL Albumin/Globulin Ratio (1-3) Urine Color Urine Appearance Urine pH (5-9) Ur Specific Rake (1.010-1.030) Urine Protein (Negative) Urine Ketones (Negative) Urine Blood (Negative) Urine Nitrate (Negative) Urine Bilirubin (Negative) Urine Urobilinogen (Negative) Ur Leukocyte Esterase (Negative) Urine Glucose (Negative) Influenza A (Rapid) Negative (Negative) Influenza B (Rapid) Positive A (Negative) Result Diagrams: 06/26/17 23:01 06/26/17 23:01 Lab Statement: Any lab studies that have been ordered have been reviewed, and results considered in the medical decision making process. - Radiology CXR Xray Interpretation: Positive (See Comments) - Bilateral basilar infiltrates, L> R. Pending official report. Radiology Interpretation Completed By: ED Physician - EKG 0084 Cardiac Rate: NL - 85 bpm EKG Rhythm: Sinus Rhythm EKG Interpretation: Normal interval. Normal axis. No ischemic changes. Re-Evaluation - Re-Evaluation First Eval Re-Evaluation Time: 23:58 Comment: Discussed results and admission plan with the pt and his . Course/Dx - Course Assessment/Plan: Pt is an 87 y/o M who presents to ED c/o SOB. reports that a few weeks ago, the pt was diagnosed with PNA without necessitating admission. Then, a few days ago he and his both became ill with a "cold." This afternoon, the pt began experiencing chills, SOB and visual hallucinations while being "incoherent." Denies V/D and any pain. remarks that usually the pt has no issues with mentation. Pt was also treated a few weeks ago for swelling in the extremities which was treated with 20 mg Prednisone which has now been tapered down to 10 mg, with the last dose having been taken this morning. CXR reveals bilateral basilar infiltrates, L>R and the EKG is sinus rhythm with no acute findings. Troponin of 0.03, CRP of 29.17. UA and Influenza A are negative. Influenza B is positive. In the ED course, pt was given Tylenol , Motrin, fluids, Zosyn, Tamiflu and Solu-Cortef. Discussed care of pt with Dr. Estephania Morfin who accepts pt for admission. Pt will be admitted with Dx of PNA and infleunza. He and his understand and agree. - Diagnoses Provider Diagnoses: Pneumonia, Influenza B - Physician Notifications Discussed Care of Patient With: Estephania Morfin Time Discussed With Above Provider: 00:00 Instructed by Provider To: Other - Accepts pt for admission. Discharge - Sign-Out/Discharge Documenting (check all that apply): Discharge - Discharge Plan Condition: Fair Disposition: ADMITTED TO [facility] Referrals: Ike Chester MD [Primary Care Provider] - - Billing Disposition and Condition Condition: FAIR Disposition: [facility] [place] The documentation as recorded by the Aidee medina Rebecca accurately reflects the service I personally performed and the decisions made by , Austen Troncoso MD.
[2017-06-27] MEDS ORDERED: Senna TAB PO PRN (00:21)
[2017-06-27] MEDS ORDERED: Al Hydrox/Mg Hydrox/Simet LIQ* 30 ML UDC PO PRN (00:21)
[2017-06-27] MEDS ORDERED: Acetaminophen TAB* 325 MG PO PRN (00:21)
[2017-06-27] MEDS ORDERED: Docusate CAP* 100 MG PO PRN (00:21)
[2017-06-27] MEDS ORDERED: Ondansetron INJ* 2 MG/ML VIAL IV PRN (00:21)
[2017-06-27] MEDS: NS 0.9% 1000 ML* 1,000 ML IV SCH ×2 (01:49→09:29)
[2017-06-27] MEDS ORDERED: Heparin VIAL(*) 5000 UNITS/ML VIAL (FIVE THOUSAND) SUBCUT SCH (06:00)
[2017-06-27 06:10] LABS: ABS Basophils 0 10^3/ul (0-0.2); ABS Eosinophils 0 10^3/ul (0-0.6); ABS Lymphocytes 0.9 10^3/ul (1.0-4.8); ABS Monocytes 0.5 10^3/ul (0-0.8); ABS Neutrophils 10.1 10^3/ul (1.5-7.7); ABS Nucleated RBC 0 10^3/ul; Eosinophil % 0 % (0-6); Hematocrit 32 % (42-52); Hemoglobin 10.7 g/dl (14.0-18.0); Lymphocyte % 7.6 % (25-47); Mean Corpuscular HGB Conc 33 g/dl (31-36); Mean Corpuscular Hemoglobin 31 pg (27-31); Mean Corpuscular Volume 93 fL (80-94); Mean Platelet Volume 8.1 um3 (7.4-10.4); Nucleated Red Blood Cells % 0.1; Platelet Count 104 10^3/ul (150-450); Red Blood Count 3.44 10^6/ul (4.0-5.4); Red Cell Distribution Width 14 % (10.5-15); White Blood Count 11.5 10^3/ul (3.5-10.8)
[2017-06-27 06:28] LABS: EGFR Non-African American 62.7 (>60)
--- NOTE | 2017-06-27 07:12 | RAD ---
INDICATION: Shortness of breath. COMPARISON: Comparison is made with a prior study from May 01, 2016. TECHNIQUE: A portable view of the chest was obtained. FINDINGS: Cardiac and mediastinal contours appear to be within normal limits. The lungs are underinflated. There are small infiltrates at both lung bases. No pleural effusion is seen. IMPRESSION: LOW LUNG VOLUMES, SMALL BIBASILAR INFILTRATES.
--- NOTE | 2017-06-27 07:42 | HP ---
CC: Ike Chester MD. * HISTORY AND PHYSICAL: DATE OF ADMISSION: 06/27/17. TIME OF EVALUATION: 29. PRIMARY CARE PHYSICIAN: Ike Chester MD. CHIEF COMPLAINT: Chills and hallucinations. HISTORY OF PRESENT ILLNESS: This is an 87-year-old male with a past medical history of BPH and GERD who presents to the emergency room with acute onset of chills and some hallucinations. The patient states he was diagnosed with pneumonia about a month ago and was doing better. He went out to [place] recently, came back into town; he states he woke up with chills. His was concerned. He was short of breath. He denies being short of breath. He has been having a dry cough, and then he also began having hallucinations, seeing things that were not actually there. He admits to being confused and that has since improved. He denies any chest pain. No headache. No nausea, vomiting, or diarrhea. No abdominal discomfort. No dysuria. He states he has been on prednisone. He's being weaned off currently, but still taking a low dose for swelling in his hands and feet and some numbness. He states the swelling has improved, but he still has some residual numbness in his hands and feet. Otherwise, review of system is negative. In the emergency room, the patient had labs, imaging. He was given 2 liters of normal saline, Zosyn, Tamiflu, ibuprofen, 100 mg of IV Solu-Cortef, and Tylenol, and was referred to the hospitalist service for further evaluation. PAST MEDICAL HISTORY: 1. BPH. 2. GERD. 3. Spinal stenosis. 4. Arthritis. 5. History of swelling on prednisone therapy. MEDICATIONS: 1. Prednisone 10 mg p.o. daily. 2. Metamucil two teaspoons p.o. daily. 3. Naprosyn 220 mg p.o. b.i.d. 4. Vitamin D 1000 units p.o. daily. 5. Tamsulosin 0.8 mg p.o. b.i.d. 6. Omeprazole 20 mg p.o. daily. 7. Finasteride 5 mg p.o. daily. ALLERGIES: No known drug allergies. FAMILY HISTORY: Mother from esophageal cancer, father from old age. SOCIAL HISTORY: The patient lives at home with his . He is independent of his ADLs. His healthcare proxy is his , Blanca. He denies any history of smoking. Rare alcohol use. No illicit drug use. He is a full code. REVIEW OF SYSTEMS: A 14-point review of systems as mentioned in the HPI, otherwise negative. PHYSICAL EXAMINATION GENERAL: No acute distress, resting comfortably. VITAL SIGNS: T-max 103.1, pulse rate 90, respiratory rate 15, oxygen saturation 97% on room air, and blood pressure 129/66. HEENT: Head normocephalic. Pupils equal and reactive, anicteric. Oropharynx: Mucous membranes are moist. NECK: Supple, no lymphadenopathy. RESPIRATORY: No increased work of breathing, bilateral rhonchi noted. No expiratory wheezing. No increased work of breathing. CARDIAC: Regular rate and rhythm. Soft systolic murmur heard throughout. ABDOMEN: Soft, nontender and nondistended. EXTREMITIES: No clubbing, cyanosis or edema. +1 DPs. NEUROLOGIC: Alert and oriented x3. No gross focal neurologic deficits. LABORATORY DATA: White count 9, hemoglobin 12.4, hematocrit 37, platelets 124. INR 0.95. Sodium 134, potassium 4.2, chloride 101, bicarb 25, BUN 26, creatinine 1.20, glucose 85, troponin 0.03, CRP 29. Urine is unremarkable. Serology positive influenza B. Radiographic Data: Chest x-ray on wet read, no opacifications noted. EKG - normal sinus rhythm. No significant ST changes. ASSESSMENT: This is an 87-year-old male with relatively unremarkable past medical history who presents to the emergency room with acute onset of chills, shortness of breath and hallucinations, found to be influenza A positive. 1. Influenza A. Assessment: Already clinically improving. No longer hallucinating. The patient will be continued on fluids. We will continue him on Tamiflu. He was given a dose of Zosyn for presumed pneumonia. I do not feel that he clinically has pneumonia based on no white count and his chest x- ray findings and his clinical presentation, but I will add on a procalcitonin to help confirm with this. 2. Acute kidney injury. Likely in the setting of prerenal azotemia in the setting of his influenza. Plan: We will continue IV fluids and repeat his labs in the morning. CHRONIC MEDICAL PROBLEMS: 1. Benign prostatic hypertrophy. Continue him on his Flomax, finasteride. 2. Gastroesophageal reflux disease. Continue him on his omeprazole. 3. Chronic hand and feet swelling. Continue his prednisone. I agree with continuing to taper off this as discussed. 4. DVT prophylaxis. The patient scores high risk. Place him on heparin subcu t.i.d. 5. FEN. Place the patient on a regular diet with IV fluids. 6. Code status. Full code. PATIENT TIME: Greater than 50 minutes were spent doing history and physical, more than half the time spent in direct patient contact. [id number]/[facility] #: [id number] MTDD
[2017-06-27] MEDS ORDERED: Oseltamivir CAP* 75 MG CAP PO SCH (09:00)
[2017-06-27 11:32] VITALS: BP 117/55
--- NOTE | 2017-06-27 11:39 | PN ---
Subjective Date of Service: 06/27/17 Interval History: Mr. Muñoz states that he is feeling much better and is eager for discharge. He denies further hallucinations. He has a mild productive cough. He denies arthralgias, myalgias or malaise. He is eager for discharge to home. Objective Active Medications: Acetaminophen (Tylenol Tab*) 650 mg PO Q4H PRN Al Hydrox/Mg Hydrox/Simethicone (Maalox Plus*) 30 ml PO Q6H PRN Docusate Sodium (Colace Cap*) 100 mg PO BID PRN Heparin Sodium (Porcine) (Heparin Vial(*)) 5,000 units SUBCUT Q8HR JANET Sodium Chloride (Ns 0.9% 1000 Ml*) 1,000 mls @ 125 mls/hr IV PER RATE JANET Ondansetron HCl (Zofran Inj*) 4 mg IV Q4H PRN Oseltamivir Phosphate (Tamiflu Cap*) 75 mg PO BID JANET Senna (Senokot Tab*) 1 tab PO BID PRN Vital Signs: Temp Pulse Resp BP Pulse Ox 97.4 F 57 18 117/55 95 06/27/17 11:23 06/27/17 11:23 06/27/17 11:23 06/27/17 11:23 06/27/17 11:23 Oxygen Devices in Use Now: None Appearance: Male sitting up in bed in NAD Eyes: No Scleral Icterus Ears/Nose/Mouth/Throat: Mucous Membranes Moist Neck: Trachea Midline Respiratory: Symmetrical Chest Expansion and Respiratory Effort, Clear to Auscultation Cardiovascular: NL Sounds; No Murmurs; No JVD, No Edema Abdominal: NL Sounds; No Tenderness; No Distention Lymphatic: No Cervical Adenopathy Extremities: No Edema Skin: No Rash or Ulcers Neurological: Alert and Oriented x 3, NL Muscle Strength and Tone Nutrition: Taking PO's Result Diagrams: 06/27/17 06:04 06/27/17 06:04 Additional Lab and Data: . Assess/Plan/Problems-Billing Assessment: Mr. Muñoz is an 87 yo M with a PMH of BPH and GERD who was admitted on with the flu. - Patient Problems (1) Influenza Comment: - Resolving, not hypoxic, mental status at baseline. - Continue tamiflu (2) BPH (benign prostatic hyperplasia) Comment: - Continue proscar and flomax (3) GERD (gastroesophageal reflux disease) Comment: - Continue omeprazole. (4) DVT prophylaxis (5) Full code status Comment: Status and Disposition: OBV. Discharge to home.
--- NOTE | 2017-07-01 01:56 | DS ---
CC: Dr. Chester * [facility] MEDICINE DISCHARGE SUMMARY: DATE OF ADMISSION: 06/27/17 DATE OF DISCHARGE: 06/27/17 PRIMARY CARE PHYSICIAN: Dr. Chester. ATTENDING PROVIDER: Félix Guy MD * (DICTATED BY ABRAHAM SHEIKH NP) PRIMARY DIAGNOSIS: Flu. SECONDARY DIAGNOSES: 1. Benign prostatic hypertrophy. 2. Gastroesophageal reflux disease. MEDICATIONS AT THE TIME OF DISCHARGE: 1. Metamucil pack 2 teaspoons p.o. daily. 2. Naproxen 220 mg p.o. b.i.d. 3. Cholecalciferol 1000 units p.o. daily. 4. Tamsulosin 0.8 mg p.o. b.i.d. 5. Omeprazole 20 mg p.o. daily. 6. Finasteride 5 mg p.o. daily. 7. Tamiflu 75 mg p.o. b.i.d. HOSPITAL COURSE: Mr. Muñoz is an 87-year-old male with past medical history of BPH and GERD who presented to the hospital on 06/27/17 with concern for hallucinations and chills. Please see the dictated H and P from Dr. Estephania Morfin for complete details. In brief, the patient noted dry cough and then noted having some hallucinations and confusion. He also reported that he had been started on prednisone outpatient for some unusual swelling in his hands and feet with good resolution. In the emergency room, he had labs that showed no leukocytosis, BUN and creatinine were very mildly elevated at 26 and 1.20 respectively. His CRP was 29.17. His urine showed no evidence of infection. His flu B swab was positive. His chest x-ray showed low lung volumes and small bibasilar infiltrates. Mr. Muñoz was admitted to the hospital and treated with IV fluids and Tamiflu. With this, he had good resolution of his symptoms. He has had no further chills. His vitals have remained stable. He denies any further hallucinations. He is up ambulating in his room independently and tolerating oral intake well. Mr. Muñoz is medically stable for discharge to home to follow up with his primary care physician, Dr. Chester. DISPOSITION: Home. DIET: Regular. ACTIVITY: As tolerated. FOLLOWUP PLAN: Please follow up with Dr. Chester in the next week regarding this acute hospitalization for flu. TIME SEEN: Approximately 60 minutes was spent on the discharge of this patient , more than half that time was spent with the patient at the bedside reviewing the events leading up to this hospitalization, performing the physical examination, and reviewing my plan of care. ABRAHAM SHEIKH NP [id number]/[facility] #: [id number] NORM
== END 2017-06-27 12:00 | disposition home or self-care (01) ==
LOC: ED 21:12 → MED 06-27 01:03
PROVIDERS: ADMIT Pediatrics; ATTEND Internal Medicine
DX: J11.1 Influenza due to unidentified influenza virus with other respiratory manifestations (principal); N40.0 Benign prostatic hyperplasia without lower urinary tract symptoms; K21.9 Gastro-esophageal reflux disease without esophagitis; R06.02 Shortness of breath; M79.89 Other specified soft tissue disorders; Z79.899 Other long term (current) drug therapy
CPT/HCPCS: 36415; 71045; 80048; 80053; 81003; 82550; 83605; 84145; 84484; 85025; 85610; 85730; 86140; 87040; 87502; 93005; 96365; 96372; 96375; 99285; A9270-GY; G0378; J1644; J1720; J2543

== ENCOUNTER 2018-03-08 15:48 | Inpatient (IN) | payer MEDICARE, OTHER ==
--- NOTE | 2018-03-08 16:05 | ED ---
Lower Extremity - HPI Summary HPI Summary: The pt is an 87 yo male brought in by ambulance to [facility] c/o R hip pain s/p 2 mechanical falls in his garage hours prior to arrival. He landed on his R hip and lay on the garage floor for about 45 minutes before crawling about 100 ft to call the ambulance. The R hip pain is rated 6/10 in severity Home Medications Medication Instructions Recorded Confirmed Type Tamsulosin CAP* [Flomax CAP*] 0.8 mg PO BID 11/25/14 06/26/17 History Cholecalciferol TAB* [Vitamin D 1,000 unit PO DAILY 05/31/17 06/26/17 History TAB*] Finasteride TAB* [Proscar TAB*] 5 mg PO DAILY 05/31/17 06/26/17 History Psyllium RICARDO* [Metamucil RICARDO*] 2 teasp PO DAILY 05/31/17 06/26/17 History Naproxen Sodium [Aleve] 220 mg PO BID 06/26/17 06/26/17 History Omeprazole CAP* [Prilosec CAP* 20 20 mg PO DAILY 06/26/17 06/26/17 History MG] Oseltamivir CAP* [Tamiflu CAP*] 75 mg PO BID #8 cap 06/27/17 Rx - History of Current Complaint Chief Complaint: EDHipPelvisInjury Stated Complaint: FALL Time Seen by Provider: 03/08/18 15:51 Hx Obtained From: Patient Mechanism Of Injury: Other - Mechanical fall x2 Onset of Pain: Post Accident, Prior to Arrival Onset/Duration: Hours Severity Initially: Moderate Severity Currently: Moderate Pain Intensity: 6 Pain Scale Used: 0-10 Numeric Timing: Constant Location: Is Discrete @ - R hip - Allergies/Home Medications Allergies/Adverse Reactions: Allergies Allergy/AdvReac Type Severity Reaction Status Date / Time No Known Allergies Allergy Verified 03/08/18 16:47 Home Medications: Home Medications Colchicine* [Colcrys*] 1 tab PO DAILY 03/08/18 [History Confirmed 03/08/18] Levothyroxine TAB* [Synthroid TAB*] 25 mcg PO DAILY 03/08/18 [History Confirmed 03/08/18] predniSONE TAB* [Deltasone 1 MG TAB*] 1 mg PO DAILY 03/08/18 [History Confirmed 03/08/18] PMH/Surg Hx/FS Hx/Imm Hx Previously Healthy: No Endocrine/Hematology History: Denies: Hx Diabetes Cardiovascular History: Denies: Hx Hypertension, Hx Pacemaker/ICD, Other Cardiovascular Problems/ Disorders Respiratory History: Denies: Other Respiratory Problems/Disorders GI History: Reports: Hx Gastroesophageal Reflux Disease - OCCASSIONAL Sx, TAKES OMEPRAZOLE QHS History: Reports: Other Problems/Disorders - BELIEVES HE HAS BPH Denies: Hx Renal Disease Musculoskeletal History: Reports: Hx Arthritis - STATES MILD, NO PARTICULAR AREAS OF DISCOMFORT, Other Musculoskeletal History - SPINAL STENOSIS Sensory History: Reports: Hx Cataracts - LEFT EYE SURGERY PENDING, Hx Contacts or Glasses - READING GLASSES, Hx Hearing Aid - BILATERAL EARS Opthamlomology History: Reports: Hx Cataracts - LEFT EYE SURGERY PENDING, Hx Contacts or Glasses - READING GLASSES Psychiatric History: Denies: Hx Panic Disorder - Cancer History Cancer Type, Location and Year: skin cancer off chest Hx Chemotherapy: No - Surgical History Surgery Procedure, Year, and Place: LEFT KNEE [facility]; HERNIA REPAIR [facility] [place]; SHOULDER [facility] Hx Anesthesia Reactions: No Infectious Disease History: No Infectious Disease History: Denies: Traveled Outside the [place] in Last 30 Days - Family History Known Family History: Positive: Other - thyroid dz - Social History Occupation: Retired Lives: With Family Alcohol Use: Rare Alcohol Amount: FEW DRINKS/WEEK Substance Use Type: Reports: None Smoking Status (MU): Never Smoked Tobacco Have You Smoked in the Last Year: No Review of Systems Negative: Fever Musculoskeletal: Other - Positive: R hip pain s/p 2 mechanical falls All Other Systems Reviewed And Are Negative: Yes Physical Exam - Summary Physical Exam Summary: Appearance: The patient is well-nourished in no acute distress and in no acute pain. Skin: The skin is warm and dry and skin color reflects adequate perfusion. HEENT: The head is normocephalic and atraumatic. The pupils are equal and reactive. The conjunctivae are clear and without drainage. Nares are patent and without drainage. Mouth reveals moist mucous membranes and the throat is without erythema and exudate. The external ears are intact. The ear canals are patent and without drainage. The tympanic membranes are intact. Neck: The neck is supple with full range of motion and non-tender. There are no carotid bruits. There is no neck vein distension. Respiratory: Chest is non-tender. Lungs are clear to auscultation and breath sounds are symmetrical and equal. Cardiovascular: Heart is regular rate and rhythm. There is no murmur or rub auscultated. There is no peripheral edema and pulses are symmetrical and equal. Abdomen: The abdomen is soft and non-tender. There are normal bowel sounds heard in all four quadrants and there is no organomegaly palpated. Musculoskeletal: The R hip is shortened and internally rotated. Tenderness in the R hip noted. There is no back tenderness noted. There is good capillary refill. There is no peripheral edema or calf tenderness elicited. Neurological: Patient is alert and oriented to person, place and time. The patient has symmetrical motor strength in all four extremities. Cranial nerves are grossly intact. Deep tendon reflexes are symmetrical and equal in all four extremities. Psychiatric: The patient has an appropriate affect and does not exhibit any anxiety or depression. Triage Information Reviewed: Yes Vital Signs On Initial Exam: Initial Vitals Temp Pulse Resp BP Pulse Ox 97.1 F 68 17 159/73 97 03/08/18 15:48 03/08/18 15:48 03/08/18 15:48 03/08/18 15:48 03/08/18 15:48 Vital Signs Reviewed: Yes Diagnostics - Vital Signs Vital Signs Temp Pulse Resp BP Pulse Ox 03/08/18 15:48 97.1 F 68 17 159/73 97 - Laboratory Result Diagrams: 03/08/18 17:25 03/08/18 17:25 Lab Statement: Any lab studies that have been ordered have been reviewed, and results considered in the medical decision making process. - Radiology Hip/Pelvis X-Ray Radiology Interpretation Completed By: Radiologist Summary of Radiographic Findings: IMPRESSION: DISPLACED FRACTURE OF THE RIGHT FEMORAL NECK. The ED physician reviewed this radiology report. R Femur X-Ray Radiology Interpretation Completed By: Radiologist Summary of Radiographic Findings: IMPRESSION: DISPLACED FRACTURE OF THE RIGHT FEMORAL NECK. The ED physician reviewed this radiology report. - EKG 15:51 Cardiac Rate: NL EKG Rhythm: Sinus Rhythm Summary of EKG Findings: PSVCs noted Lower Extremity Course/Dx - Course Course Of Treatment: Mr. Muñoz is a robust 87-year-old male who suffered a mechanical fall at home today. He had immediate right hip pain which prevented him rising and he had to crawl about 100 feet to the house to notify his . He was brought in by EMS with stable vitals and nontoxic in appearance. He had a shortened and rotated right leg with tenderness of the right hip and subsequent x-ray showed a femoral neck fracture. Dr. Sandra was contacted and will consult on him and the hospitalists were contacted for admission. - Diagnoses Provider Diagnoses: Hip fracture, right - Physician Notifications Discussed Care Of Patient With: Power Rodriguez - Orthopedic surgeon Time Discussed With Above Provider: 17:13 Instructed by Provider To: Other - Dr. Gutierrez recommended additional X-rays. 17:30 hrs- Dr. Etelvina Hardy agreed to admit the patient. Discharge - Sign-Out/Discharge Documenting (check all that apply): Patient Departure - Discharge Plan Condition: Stable Disposition: ADMITTED TO [facility] - Billing Disposition and Condition Condition: STABLE Disposition: Admitted to [place] [facility] - Attestation Statements Document Initiated by Antonia: Yes Documenting Scribe: Viridiana Voss Provider For Whom Scribe is Documenting (Include Credential): Dr. Dilan Guillen MD Scribe Attestation: Viridiana Melo scribed for Dr. Dilan Guillen MD on 03/08/18 at 2145. Scribe Documentation Reviewed: Yes Provider Attestation: The documentation as recorded by the Viridiana medina accurately reflects the service I personally performed and the decisions made by , Dr. Dilan Guillen MD Status of Scribe Document: Viewed
--- OUTSIDE RECORDS SUMMARY | 2018-03-08 16:12 | XMS REPORT | Continuity of Care Document ---
:1930 External Reference #:[id number] Author Name LowAlfredito pascual Care Team Providers Name Role Phone Ike Chester III, MD Primary Care Physician Unavailable Payers Type Date Identification Numbers Payment Provider Subscriber Effective: Policy Number: [id number] Medicare Saeid Muñoz 1995 PayID: [id number] [address] [place] [address] Policy Number: [id number] [employer] Saeid Muñoz PayID: [id number] [address] [place] [address] Advance Directives Type Date Description Status Comment Other Directive 06/05/2017 Health Care Proxy Current and Verified Problems Date Description Provider Status Onset: 01/13/2015 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 Active Onset: 02/07/2015 Convalescence after surgery Riaz Post M.D. Active Onset: 01/16/2018 Inflammatory polyarthropathy Ike Chester M.D. Active Onset: 01/16/2018 Pure hypercholesterolemia Ike Chester M.D. Active Onset: 01/16/2018 History of malignant neoplasm of skin Ike Chester M.D. Active Onset: 01/16/2018 Impaired fasting glycaemia Ike Chester M.D. Active Onset: 01/16/2018 Gastroesophageal reflux disease Ike Chester M.D. Active Onset: 01/16/2018 Benign prostatic hypertrophy without Ike Chester M.D. Active outflow obstruction Onset: 01/16/2018 Hypothyroidism Ike Chester M.D. Active Onset: 01/16/2018 Polymyalgia rheumatica Ike Chester M.D. Active Onset: 08/17/2015 Localized, primary osteoarthritis Nelda Ortega M.D. Active Onset: 08/17/2015 Localized, primary osteoarthritis of Nelda Ortega M.D. Active the pelvic region and thigh Family History Date Family Member(s) Problem(s) Comments General cancer Social History Type Date Description Comments Sex Unknown Marital Status Lives With Occupation [employer] ETOH Use Drinks 2 Alcoholic Beverages Per Week Tobacco Use Start: Unknown Patient has never smoked Recreational Drug Use Denies Drug Use Smoking Status Reviewed: 03/03/18 Patient has never smoked Exercise Type/Frequency Exercises regularly Allergies, Adverse Reactions, Alerts Description No Known Drug Allergies Medications Medication Date Status Form Strength Qnty SIG Indications Ordering Provider Prednisone 09/17/ Active Tablets 5mg 90tab 1 by mouth M06.4 2017 s every day Lesley Rodrigues Prednisone 09/17/ Active Tablets 1mg 360ta take four M85.89 2017 bs tablets by ken Rodrigues once M.D. daily , taper by 1 mg every 3 weeks, in addition to 5mg prednisone daily D3 Dots 08/15/ Active Tablets 2000Unit 40tab take one 2017 Dispers s capsule/tabl Ravi, et daily by Lesley mouth Vitamins To Go 08/15/ Active Misc 60uni Take one 2017 ts capsule/tabl Ravi, et daily by MArcadio mouth (using the vitamin preparation which contains iron) Colchicine 08/15/ Active Tablets 0.6mg 30tab 1 by mouth 2017 s every day Lesley Rodrigues Ipratropium 07/09/ Active Solution 0.06% 15ml spray 1 Ike E. [place] 2018 squirt to Nemo, each nostril M.DJose Alfredo daily as needed Levothyroxine 06/05/ Active Tablets 25mcg 90tab 1 by mouth E03.9 Ike E. Sodium 2017 s every day Lesley Chester Flomax / Active 8mg 1 bid Unknown 0000 Omeprazole / Active Capsules 20mg 90cap 1 by mouth Ike EJose Alfredo [address] merrill every day Lesley Chester Metamucil / Active Powder 28.3% as directed Unknown 0000 on package daily Vitamin D High / Active Capsules 1000Unit 1 by mouth Unknown Potency 0000 every day Finasteride / Active Tablets 5mg 1 by mouth Unknown 0000 every day Multi For Him / Active Tablets 1 by mouth Unknown 50+ 0000 every day Motrin Ib / Active Tablets 200mg 1-2 twice a Unknown 0000 day as needed Prednisone 08/01/ Hx Tablets 10mg 30tab take one M06.4 Zsofia 2018 - s capsule/tabl Jae, et daily 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 2018 - s tablet daily Nemo 07/07/ for 14 days M.D. 2018 Prednisone 06/05/ Hx Tablets 20mg 20tab 1 by mouth R60.0 Ike E. 2018 - s every day Nemo, 06/17/ M.D. 2018 Meloxicam 08/16/ Hx Tablets 15mg 60tab 1 by mouth M16.11 Nelda 2016 - s every day Jordan, 03/20/ M.D. 2017 Aspirin Low / Hx Unknown Dose 0000 - 2014 Aleve / Hx Capsules 220mg 2 by mouth Unknown 0000 - twice a day 06/05/ as needed 2018 Neomycin/Polymy / Hx Solution 1% 10ml 4 drops in Ike LoganJose Alfredo fior/Hydrocortis 0000 - affected ear ferdinand Chester (Otic) 09/17/ 3 times M.D. 2018 daily Ipratropium / Hx Solution 0.06% prn Unknown [place] Nasal 0000 - [place] 2017 Levofloxacin / Hx Tablets 500mg Take 1 Unknown 0000 - Tablet By 08/01/ Mouth Every 2018 Day Medications Administered in Office Medication Date Status Form Strength Qnty SIG Indications Ordering Provider Depomedrol Administered Injection Dirk Mili, 40MG 018 M.D. Depomedrol Administered Injection Dirk Mili, 80MG 012 M.D. Immunizations CPT Code Status Date Vaccine Lot # [id number] Given 01/21/2018 Pneumonia Vaccine [id number] Given 01/20/2018 Fluzone High Dose 78208 Given 08/16/2017 Zoster (Shingles) Vaccine (HZV), Recombinant, Subunit, Adjuvanted 31821 Given 01/08/2017 Influenza Virus Vaccine, Quadrivalent, Split, Preservative Free 84938 Given 04/08/2011 Tdap - Tetanus/Diptheria/Acellular Pertussis 19319 Given 04/08/2009 Pneumonia Vaccine Vital Signs Date Vital Result Comment 03/03/2018 2:10pm Height 70 inches 5'10" Weight 170.00 lb Heart Rate 67 /min BP Systolic 130 mmHg BP Diastolic 62 mmHg Body Temperature 96.6 F BMI (Body Mass Index) 24.4 kg/m2 01/16/2018 9:37am Height 69 inches 5'9" Weight 172.00 lb Heart Rate 60 /min BP Systolic Sitting 126 mmHg BP Diastolic Sitting 60 mmHg O2 % BldC Oximetry 95 % BMI (Body Mass Index) 25.4 kg/m2 11/28/2017 1:13pm Height 68.5 inches 5'8.50" Weight 173.38 lb Heart Rate 64 /min BP Systolic Sitting 122 mmHg BP Diastolic Sitting 64 mmHg Pain Level 0 O2 % BldC Oximetry 97 % BMI (Body Mass Index) 26.0 kg/m2 09/17/2017 3:47pm Height 68.5 inches 5'8.50" Weight 173.00 lb Heart Rate 64 /min BP Systolic Sitting 120 mmHg BP Diastolic Sitting 70 mmHg Respiratory Rate 14 /min Pain Level 1 BMI (Body Mass Index) 25.9 kg/m2 08/15/2017 9:35am Height 68.5 inches 5'8.50" Weight 177.00 lb Heart Rate 64 /min BP Systolic Sitting 130 mmHg BP Diastolic Sitting 70 mmHg Respiratory Rate 14 /min Pain Level 0 BMI (Body Mass Index) 26.5 kg/m2 08/01/2017 11:12am Height 68.5 inches 5'8.50" Weight 176.31 lb Heart Rate 68 /min BP Systolic Sitting 134 mmHg BP Diastolic Sitting 62 mmHg Respiratory Rate 14 /min Pain Level 0 BMI (Body Mass Index) 26.4 kg/m2 07/09/2017 10:13am Weight 174.00 lb Heart Rate 66 /min BP Systolic Sitting 132 mmHg BP Diastolic Sitting 60 mmHg O2 % BldC Oximetry 98 % 06/05/2017 2:59pm Weight 175.00 lb Heart Rate 57 /min BP Systolic Sitting 138 mmHg BP Diastolic Sitting 50 mmHg Body Temperature 97.2 F O2 % BldC Oximetry 93 % 05/27/2017 11:21am Weight 176.00 lb Heart Rate 79 /min BP Systolic Sitting 122 mmHg BP Diastolic Sitting 60 mmHg O2 % BldC Oximetry 92 % 05/20/2017 1:08pm Weight 172.00 lb Heart Rate 74 /min BP Systolic 130 mmHg BP Diastolic 72 mmHg Body Temperature 97.9 F O2 % BldC Oximetry 96 % 04/24/2017 3:17pm Height 68.5 inches 5'8.50" Weight 171.00 lb BP Systolic 120 mmHg BP Diastolic 68 mmHg Respiratory Rate 18 /min Body Temperature 97.2 F Pain Level 1 BMI (Body Mass Index) 25.6 kg/m2 03/21/2017 2:20pm Height 68.5 inches 5'8.50" Weight 171.00 lb Heart Rate 60 /min BP Systolic Sitting 112 mmHg BP Diastolic Sitting 62 mmHg Body Temperature 98.1 F O2 % BldC Oximetry 98 % BMI (Body Mass Index) 25.6 kg/m2 08/14/2016 1:13pm Height 68.50 inches 5'8.50" Weight 170.00 lb Heart Rate 58 /min BP Systolic 126 mmHg BP Diastolic 64 mmHg Body Temperature 97.6 F O2 % BldC Oximetry 97 % BMI (Body Mass Index) 25.5 kg/m2 08/17/2015 8:08am Height 71 inches 5'11" Weight 185.00 lb Pain Level 8 BMI (Body Mass Index) 25.8 kg/m2 02/28/2015 9:12am Height 71 inches 5'11" Weight 182.00 lb Heart Rate 58 /min BP Systolic Sitting 130 mmHg BP Diastolic Sitting 80 mmHg Pain Level 0 BMI (Body Mass Index) 25.4 kg/m2 02/07/2015 2:10pm Height 71 inches 5'11" Weight 182.00 lb Heart Rate 56 /min BP Systolic Sitting 122 mmHg BP Diastolic Sitting 84 mmHg Pain Level 0 BMI (Body Mass Index) 25.4 kg/m2 01/13/2015 2:21pm Height 71 inches 5'11" Weight 182.00 lb Heart Rate 54 /min BP Systolic Sitting 124 mmHg BP Diastolic Sitting 70 mmHg Pain Level 1 back/l leg BMI (Body Mass Index) 25.4 kg/m2 05/16/2011 1:43pm Height 71 inches 5'11" Weight 180.00 lb Heart Rate 65 /min BP Systolic 135 mmHg BP Diastolic 63 mmHg BMI (Body Mass Index) 25.1 kg/m2 Results Test Date Facility Test Result H/L Range Note Laboratory test 11/25/2017 [facility] Erythrocyte Sed 18 mm/Hr N 0-[address] [place] [address] [phone] C Reactive Protein 1.00 mg/L N <8.01 CBC Auto Diff 11/25/2017 [facility] White Blood 8.9 10^3/uL N 3.5-10.[address] [place] [address] [phone] Red Blood Count 4.08 10^6/uL N 4.00-5.40 Hemoglobin 12.7 g/dL Low 14.0-18.0 Hematocrit 38 % Low 42-52 Mean Corpuscular Volume 94 fL N 80-94 Mean Corpuscular Hemoglobin 31 pg N 27-31 Mean Corpuscular HGB Conc 33 g/dL N 31-36 Red Cell Distribution Width 15 % N 10.5-15 Platelet Count 180 10^3/uL N 150-450 Mean Platelet Volume 8.8 um3 N 7.4-10.4 Abs Neutrophils 7.5 10^3/uL N 1.5-7.7 Abs Lymphocytes 0.9 10^3/uL Low 1.0-4.8 Abs Monocytes 0.4 10^3/uL N 0-0.8 Abs Eosinophils 0 10^3/uL N 0-0.6 Abs Basophils 0 10^3/uL N 0-0.2 Abs Nucleated RBC 0 10^3/uL Granulocyte % 84.6 % High 38-83 Lymphocyte % 9.8 % Low 25-47 Monocyte % 4.9 % N 0-7 Eosinophil % 0.2 % N 0-6 Basophil % 0.5 % N 0-2 Nucleated Red Blood Cells % 0 Comp Metabolic Panel 11/25/2017 [facility] Sodium 136 mmol/L N 135-[address] [place] [address] [phone] Potassium 4.3 mmol/L N 3.5-5.0 Chloride 102 mmol/L N 101-111 Co2 Carbon Dioxide 27 mmol/L N 22-32 Anion Gap 7 mmol/L N 2-11 Glucose 89 mg/dL N 70-100 Blood Urea Nitrogen 29 mg/dL High 6-24 Creatinine 1.13 mg/dL N 0.67-1.17 BUN/Creatinine Ratio 25.7 High 8-20 Calcium 9.4 mg/dL N 8.6-10.3 Total Protein 6.9 g/dL N 6.4-8.9 Albumin 4.1 g/dL N 3.2-5.2 Globulin 2.8 g/dL N 2-4 Albumin/Globulin Ratio 1.5 N 1-3 Total Bilirubin 0.60 mg/dL N 0.2-1.0 Alkaline Phosphatase 58 U/L N 34-104 Alt 18 U/L N 7-52 Ast 23 U/L N 13-39 Egfr Non- 61.4 >60 Egfr 74.3 >60 1 Laboratory test 09/12/2017 [facility] Erythrocyte Sed 22 mm/Hr N 0-[address] [place] [address] [phone] C Reactive Protein 3.30 mg/L N < 5.00 2 CBC Auto Diff 09/12/2017 [facility] White Blood 8.1 10^3/uL N 3.5-10.[address] [place] [address] [phone] Red Blood Count 3.97 10^6/uL Low 4.0-5.4 Hemoglobin 12.1 g/dL Low 14.0-18.0 Hematocrit 37 % Low 42-52 Mean Corpuscular Volume 93 fL N 80-94 Mean Corpuscular Hemoglobin 30 pg N 27-31 Mean Corpuscular HGB Conc 33 g/dL N 31-36 Red Cell Distribution Width 15 % N 10.5-15 Platelet Count 191 10^3/uL N 150-450 Mean Platelet Volume 8.6 um3 N 7.4-10.4 Abs Neutrophils 5.4 10^3/uL N 1.5-7.7 Abs Lymphocytes 1.8 10^3/uL N 1.0-4.8 Abs Monocytes 0.8 10^3/uL N 0-0.8 Abs Eosinophils 0.1 10^3/uL N 0-0.6 Abs Basophils 0 10^3/uL N 0-0.2 Abs Nucleated RBC 0 10^3/uL Granulocyte % 66.8 % N 38-83 Lymphocyte % 22.3 % Low 25-47 Monocyte % 9.3 % High 0-7 Eosinophil % 1.0 % N 0-6 Basophil % 0.6 % N 0-2 Nucleated Red Blood Cells % 0.1 Comp Metabolic Panel 09/12/2017 [facility] Sodium 137 mmol/L Low 139-[address] [place] [address] [phone] Potassium 4.5 mmol/L N 3.5-5.0 Chloride 103 mmol/L N 101-111 Co2 Carbon Dioxide 29 mmol/L N 22-32 Anion Gap 5 mmol/L N 2-11 Glucose 85 mg/dL N 70-100 Blood Urea Nitrogen 25 mg/dL High 6-24 Creatinine 1.06 mg/dL N 0.67-1.17 BUN/Creatinine Ratio 23.6 High 8-20 Calcium 9.2 mg/dL N 8.6-10.3 Total Protein 6.5 g/dL N 6.4-8.9 Albumin 3.7 g/dL N 3.2-5.2 Globulin 2.8 g/dL N 2-4 Albumin/Globulin Ratio 1.3 N 1-3 Total Bilirubin 0.60 mg/dL N 0.2-1.0 Alkaline Phosphatase 67 U/L N 34-104 Alt 17 U/L N 7-52 Ast 22 U/L N 13-39 Egfr Non- 66.1 >60 Egfr 85.0 >60 3 Laboratory test 09/12/2017 [facility] TSH (Thyroid 5.21 mcIU/mL N 0.34-5.[address] Stim Horm) [place] [address] [phone] Vitamin D Total 25(Oh) 58.9 ng/mL High 20-50 Cyclic Citrullinated Pep Igg <15.6 U 4 Laboratory test 08/01/2017 [facility] Rheumatoid <10 IU/mL 0- [address] [place] [address] [phone] Anca AB Ser If 08/01/2017 [facility] C-[place] [address] [phone] P-Anca Negative Negative 6 Tick-Borne Panel 08/01/2017 [facility] Babesia Negative Negative PCR Blood [address] [place] [address] [phone] Babesia ducani Negative Negative Babesia divergens/Mo-1 Negative Negative 7 Anaplasma phagocytophilum Negative Negative Ehrlichia chaffeensis Negative Negative Ehrlichia ewingii/canis Negative Negative Ehrlichia muris-like Negative Negative 8 B. miyamotoi PCR, B Negative Negative 9 Hla B27 08/01/2017 [facility] Hla B27 Negative [address] [place] [address] [phone] Hla B27 Interp See Comment 11 Vitamin B12 And 08/01/2017 [facility] Vitamin B12 408 pg/mL N 180-914 12 Folate Serum [address] [place] [address] [phone] Folic Acid (Folate) > 20.00 ng/mL >3.99 Laboratory test 08/01/2017 [facility] Vitamin D, 27 pg/mL 18- 64 13 finding [address] [facility] 1,25 [place] [address] [phone] Iron & Iron 08/01/2017 [facility] Iron 41 g/dL Low 50-212 Binding Capacity [address] [place] [address] [phone] Unsaturated Iron Binding 292 g/dL Total Iron Binding Capacity 333 g/dL N 250-450 Transferrin 238 mg/dL N 203-362 % Iron Saturation 12 % Low 15-55 Laboratory test 08/01/2017 [facility] Ferritin 69.2 ng/mL N 24 -336 finding [address] [place] [address] [phone] Erythrocyte Sed Rate 49 mm/Hr High 0-40 C Reactive Protein 48.08 mg/L High < 5.00 14 CBC Auto Diff 07/02/2017 [facility] White Blood 7.2 10^3/uL N 3.5-10.[address] [place] [address] [phone] Red Blood Count 4.07 10^6/uL N 4.0-5.4 Hemoglobin 12.5 g/dL Low 14.0-18.0 Hematocrit 38 % Low 42-52 Mean Corpuscular Volume 93 fL N 80-94 Mean Corpuscular Hemoglobin 31 pg N 27-31 Mean Corpuscular HGB Conc 33 g/dL N 31-36 Red Cell Distribution Width 14 % N 10.5-15 Platelet Count 171 10^3/uL N 150-450 Mean Platelet Volume 8.6 um3 N 7.4-10.4 Abs Neutrophils 4.2 10^3/uL N 1.5-7.7 Abs Lymphocytes 2.4 10^3/uL N 1.0-4.8 Abs Monocytes 0.5 10^3/uL N 0-0.8 Abs Eosinophils 0.1 10^3/uL N 0-0.6 Abs Basophils 0 10^3/uL N 0-0.2 Abs Nucleated RBC 0 10^3/uL Granulocyte % 58.2 % N 38-83 Lymphocyte % 33.8 % N 25-47 Monocyte % 7.0 % N 0-7 Eosinophil % 0.7 % N 0-6 Basophil % 0.3 % N 0-2 Nucleated Red Blood Cells % 0 Laboratory test 07/02/2017 [facility] Uric Acid 5.4 mg/dL N 4.4-7.6 15 finding [address] [place] [address] [phone] D Dimer Quantitative 401 ng/mL High Less Than 230 16 TSH (Thyroid Stim Horm) 3.97 mcIU/mL N 0.34-5.60 Free T4 (Free Thyroxine) 0.91 ng/dL N 0.61-1.12 Lyme Disease Serology Negative Negative 17 Connective Tissue 07/02/2017 [facility] Anti-Nuclear 2.5 U High 18 Panel [address] [facility] [place] [address] [phone] Cyclic Citrullinated Peptide <15.6 U 19 Interpretation See Comment 20 Laboratory test 06/26/2017 [facility] Lactic Acid 1.4 mmol/L N 0.5-2.0 21 finding [address] [place] [address] [phone] CBC Auto Diff 06/26/2017 [facility] White Blood 9.0 10^3/uL N 3.5-10.8 [address] [facility] [place] [address] [phone] Red Blood Count 3.96 10^6/uL Low 4.0-5.4 Hemoglobin 12.4 g/dL Low 14.0-18.0 Hematocrit 37 % Low 42-52 Mean Corpuscular Volume 94 fL N 80-94 Mean Corpuscular Hemoglobin 31 pg N 27-31 Mean Corpuscular HGB Conc 33 g/dL N 31-36 Red Cell Distribution Width 14 % N 10.5-15 Platelet Count 124 10^3/uL Low 150-450 Mean Platelet Volume 8.8 um3 N 7.4-10.4 Abs Neutrophils 7.2 10^3/uL N 1.5-7.7 Abs Lymphocytes 1.1 10^3/uL N 1.0-4.8 Abs Monocytes 0.7 10^3/uL N 0-0.8 Abs Eosinophils 0 10^3/uL N 0-0.6 Abs Basophils 0 10^3/uL N 0-0.2 Abs Nucleated RBC 0 10^3/uL Granulocyte % 79.7 % N 38-83 Lymphocyte % 12.5 % Low 25-47 Monocyte % 7.6 % High 0-7 Eosinophil % 0.1 % N 0-6 Basophil % 0.1 % N 0-2 Nucleated Red Blood Cells % 0.1 Inr/Protime 06/26/2017 [facility] Inr 0.95 N 0.77-1.[address] [place] [address] [phone] Laboratory test 06/26/2017 [facility] Partial 18.1 Low 26.0- 36.[address] [address] PTT [phone] Comp Metabolic 06/26/2017 [facility] Sodium 134 mmol/L N 133- [address] [place] [address] [phone] Potassium 4.2 mmol/L N 3.5-5.0 Chloride 101 mmol/L N 101-111 Co2 Carbon Dioxide 25 mmol/L N 22-32 Anion Gap 8 mmol/L N 2-11 Glucose 85 mg/dL N 70-100 Blood Urea Nitrogen 26 mg/dL High 6-24 Creatinine 1.20 mg/dL High 0.67-1.17 BUN/Creatinine Ratio 21.7 High 8-20 Calcium 8.8 mg/dL N 8.6-10.3 Total Protein 6.7 g/dL N 6.4-8.9 Albumin 3.7 g/dL N 3.2-5.2 Globulin 3.0 g/dL N 2-4 Albumin/Globulin Ratio 1.2 N 1-3 Total Bilirubin 0.40 mg/dL N 0.2-1.0 Alkaline Phosphatase 60 U/L N 34-104 Alt 13 U/L N 7-52 Ast 18 U/L N 13-39 Egfr Non- 57.3 >60 Egfr 73.7 >60 22 Laboratory test 06/26/2017 [facility] Creatine 67 U/L N 10- 223 finding 101 [facility] Kinase(CK) [place] [address] [phone] C Reactive Protein 29.17 mg/L High < 5.00 23 Troponin-I (TnI) 0.03 ng/mL <0.04 Procalcitonin 0.1 ng/mL <0.6 24 Laboratory test 05/31/2017 [facility] Centromere Auto Abs <0.2 U [address] [place] [address] [phone] Ribosome P Antibodies, Igg <0.2 U 26 Anti Double Stranded Dna Ab 16.0 IU/mL 27 Interpretation See Comment 28 Trini Igg AB Reflex 05/31/2017 [facility] SS-A/Ro Antibody <0.2 U [address] [place] [address] [phone] SS-B/La Antibody <0.2 U 30 Sm (Reese) IgG Antibody <0.2 U 31 U1-nRNP Antibody 0.4 U 32 Scl-70 (Scleroderma) Antibody <0.2 U 33 Hawa-1 Antibody <0.2 U 34 CBC Auto Diff 05/31/2017 [facility] White Blood 5.9 10^3/uL N 3.5-10.[address] [place] [address] [phone] Red Blood Count 3.62 10^6/uL Low 4.0-5.4 Hemoglobin 11.2 g/dL Low 14.0-18.0 Hematocrit 34 % Low 42-52 Mean Corpuscular Volume 93 fL N 80-94 Mean Corpuscular Hemoglobin 31 pg N 27-31 Mean Corpuscular HGB Conc 33 g/dL N 31-36 Red Cell Distribution Width 13 % N 10.5-15 Platelet Count 192 10^3/uL N 150-450 Mean Platelet Volume 8 um3 N 7.4-10.4 Abs Neutrophils 3.0 10^3/uL N 1.5-7.7 Abs Lymphocytes 1.9 10^3/uL N 1.0-4.8 Abs Monocytes 0.7 10^3/uL N 0-0.8 Abs Eosinophils 0.2 10^3/uL N 0-0.6 Abs Basophils 0 10^3/uL N 0-0.2 Abs Nucleated RBC 0 10^3/uL Granulocyte % 51.7 % N 38-83 Lymphocyte % 32.7 % N 25-47 Monocyte % 12.1 % High 0-7 Eosinophil % 2.9 % N 0-6 Basophil % 0.6 % N 0-2 Nucleated Red Blood Cells % 0 Inr/Protime 05/31/2017 [facility] Inr 0.90 N 0.77-1.[address] [place] [address] [phone] Laboratory test 05/31/2017 [facility] Partial 26.5 seconds N 26.0-36.[address] [place] [address] PTT [phone] Comp Metabolic 05/31/2017 [facility] Sodium 135 mmol/L N 133- [address] [place] [address] [phone] Potassium 4.3 mmol/L N 3.5-5.0 Chloride 103 mmol/L N 101-111 Co2 Carbon Dioxide 27 mmol/L N 22-32 Anion Gap 5 mmol/L N 2-11 Glucose 105 mg/dL High 70-100 Blood Urea Nitrogen 26 mg/dL High 6-24 Creatinine 1.05 mg/dL N 0.67-1.17 BUN/Creatinine Ratio 24.8 High 8-20 Calcium 9.2 mg/dL N 8.6-10.3 Total Protein 6.7 g/dL N 6.4-8.9 Albumin 3.6 g/dL N 3.2-5.2 Globulin 3.1 g/dL N 2-4 Albumin/Globulin Ratio 1.2 N 1-3 Total Bilirubin 0.40 mg/dL N 0.2-1.0 Alkaline Phosphatase 75 U/L N 34-104 Alt 12 U/L N 7-52 Ast 23 U/L N 13-39 Egfr Non- 66.8 >60 Egfr 85.9 >60 35 Connective Tissue 05/31/2017 [facility] Anti-Nuclear 3.2 U High [address] [place] [address] [phone] Cyclic Citrullinated Peptide <15.6 U 37 Laboratory test 05/31/2017 [facility] Lyme Disease Negative Negative [address] [place] [address] [phone] Uric Acid 8.4 mg/dL High 4.4-7.6 CBC Auto Diff 05/31/2017 [facility] White Blood 7.1 10^3/uL N 3.5-10.[address] [place] [address] [phone] Red Blood Count 3.78 10^6/uL Low 4.0-5.4 Hemoglobin 11.8 g/dL Low 14.0-18.0 Hematocrit 35 % Low 42-52 Mean Corpuscular Volume 94 fL N 80-94 Mean Corpuscular Hemoglobin 31 pg N 27-31 Mean Corpuscular HGB Conc 33 g/dL N 31-36 Red Cell Distribution Width 13 % N 10.5-15 Platelet Count 197 10^3/uL N 150-450 Mean Platelet Volume 9 um3 N 7.4-10.4 Abs Neutrophils 5.0 10^3/uL N 1.5-7.7 Abs Lymphocytes 1.4 10^3/uL N 1.0-4.8 Abs Monocytes 0.6 10^3/uL N 0-0.8 Abs Eosinophils 0.1 10^3/uL N 0-0.6 Abs Basophils 0 10^3/uL N 0-0.2 Abs Nucleated RBC 0 10^3/uL Granulocyte % 70.8 % N 38-83 Lymphocyte % 19.8 % Low 25-47 Monocyte % 7.9 % High 0-7 Eosinophil % 0.9 % N 0-6 Basophil % 0.6 % N 0-2 Nucleated Red Blood Cells % 0 Laboratory test 05/31/2017 [facility] D Dimer 616 ng/mL High Less [address] Quantitative Than 230 [place] [address] [phone] Laboratory test 05/27/2017 [facility] TSH (Thyroid 7.77 High 0.34-5.[address] Stim Horm) mcIU/mL 0 [place] [address] [phone] Free T4 (Free Thyroxine) 0.79 ng/dL N 0.61-1.12 Comp Metabolic Panel 05/27/2017 [facility] Sodium 135 mmol/L N 133-[address] [place] [address] [phone] Potassium 4.5 mmol/L N 3.5-5.0 Chloride 101 mmol/L N 101-111 Co2 Carbon Dioxide 26 mmol/L N 22-32 Anion Gap 8 mmol/L N 2-11 Glucose 87 mg/dL N 70-100 Blood Urea Nitrogen 26 mg/dL High 6-24 Creatinine 0.96 mg/dL N 0.67-1.17 BUN/Creatinine Ratio 27.1 High 8-20 Calcium 9.4 mg/dL N 8.6-10.3 Total Protein 7.0 g/dL N 6.4-8.9 Albumin 3.9 g/dL N 3.2-5.2 Globulin 3.1 g/dL N 2-4 Albumin/Globulin Ratio 1.3 N 1-3 Total Bilirubin 0.60 mg/dL N 0.2-1.0 Alkaline Phosphatase 84 U/L N 34-104 Alt 14 U/L N 7-52 Ast 23 U/L N 13-39 Egfr Non- 74.1 >60 Egfr 95.3 >60 40 Laboratory test 05/27/2017 [facility] B-Type Natriuretic 61 pg/ mL [address] [place] [address] [phone] Erythrocyte Sed Rate 47 mm/Hr High 0-40 C Reactive Protein 17.92 mg/L High < 5.00 42 Basic Metabolic Panel 01/18/2015 [facility] Sodium 136 mmol/L N 133-[address] [place] [address] [phone] Potassium 4.5 mmol/L N 3.5-5.0 Chloride 104 mmol/L N 101-111 Co2 Carbon Dioxide 24 mmol/L N 22-32 Anion Gap 8 mmol/L N 2-11 Glucose 117 mg/dL High 70-100 Blood Urea Nitrogen 27 mg/dL High 6-24 Creatinine 1.05 mg/dL N 0.67-1.17 BUN/Creatinine Ratio 25.7 High 8-20 Calcium 9.0 mg/dL N 8.6-10.3 Egfr Non- 67.3 N >60 Egfr 86.5 N >60 43 CBC No Diff 01/18/2015 [facility] White Blood 6.0 10^3/uL N 4.8-10.[address] [place] [address] [phone] Red Blood Count 4.11 10^6/uL N 4.0-5.4 Hemoglobin 13.0 g/dL Low 14.0-18.0 Hematocrit 40 % Low 42-52 Mean Corpuscular Volume 97 fL High 80-94 Mean Corpuscular Hemoglobin 32 pg High 27-31 Mean Corpuscular HGB Conc 33 g/dL N 31-36 Red Cell Distribution Width 14 % N 10.5-15 Platelet Count 182 10^3/uL N 150-450 Mean Platelet Volume 9 um3 N 7.4-10.4 1 Because ethnic data is not always [...] 15-29 5 Kidney failure <15 (or dialysis) 2 Acute inflammation: >10.00 3 Because ethnic data is not always readily [...] 15-29 5 Kidney failure <15 (or dialysis) 4 REFERENCE VALUE <20.0 (Negative) Test Performed by: [facility] [place] - [address] [address] Performed by [facility], [address] [place] [id number] [email or web address] Ashton MD - Lab. Director Test Performed by: [facility] 71 [place] [id number] 6 Negative for cANCA and pANCA patterns by immunofluorescence. ADDITIONAL INFORMATION This test was developed and its performance characteristics determined by [facility] in a manner consistent with CLIA requirements. This test has not been cleared or approved by the U.S. Food and Drug Administration. Test Performed by: [facility] [place] - [address] [address] 7 ADDITIONAL INFORMATION This test was developed and its performance characteristics determined by [facility] in a manner consistent with CLIA requirements. This test has not been cleared or approved by the U.S. Food and Drug Administration. 8 ADDITIONAL INFORMATION This test was developed and its performance characteristics determined by [facility] in a manner consistent with CLIA requirements. This test has not been cleared or approved by the U.S. Food and Drug Administration. 9 ADDITIONAL INFORMATION This test was developed and its performance characteristics determined by [facility] in a manner consistent with CLIA requirements. This test has not been cleared or approved by the U.S. Food and Drug Administration. Test Performed by: [facility] [employer] - [address] [address] 10 REFERENCE VALUE Not Applicable 11 RESULT: HLA-B27 antigen was not detected. ADDITIONAL INFORMATION Method: Flow Cytometry Performing Laboratory CLIA# [id number] Test Performed by: [facility] [employer] - [address] [id number] 12 Normal Range 180 to 914 Indeterminate Range 145 to 180 Deficient Range <145 13 ADDITIONAL INFORMATION This test was developed and its performance characteristics determined by [facility] in a manner consistent with CLIA requirements. This test has not been cleared or approved by the U.S. Food and Drug Administration. Test Performed by: [facility] [employer] - [address] [address] 14 Acute inflammation: >10.00 15 FASTING 16 Please note: The following may produce a false positive D Dimer test: - Rheumatoid factor greater than 60 IU/ml - Plasma hemoglobin greater than 0.05 gm/dl - Bilirubin greater than 50 mg/dl - Lipids greater than 1000 mg/dl - FDP greater than 20 ug/ml 17 Serologic response to B. burgdorferi infection is not detected, but cannot rule out early infection during which low or undetectable antibody levels to B. burgdorferi may be present. If clinically indicated, a new serum specimen should be submitted in 7-14 days. Test Performed by: [facility] [employer] - [address] [id number] 18 Interpretation: Weak Positive (1.1-2.9) REFERENCE VALUE <=1.0 (Negative) 19 REFERENCE VALUE <20.0 (Negative) 20 Tests for antibodies to dsDNA and TRINI antigens are not performed automatically unless the SISSY result is > or= 3.0 U. Studies performed at [facility] indicate that positive SISSY results <3.0 U are rarely accompanied by positive second order tests. Test Performed by: [address] [address] 21 [facility] Severe Sepsis and Septic Shock Management Bundle Measure requires all lactic acids initially measuring >2.0 mmol/L be repeated. 22 Because ethnic data is not always readily [...] 15-29 5 Kidney failure <15 (or dialysis) 23 Acute inflammation: >10.00 24 Interpretive information available on [employer] Test Catalog at [email or web address] 25 REFERENCE VALUE <1.0 (Negative) Test Performed by: [facility] [employer] [address] [address] 26 REFERENCE VALUE <1.0 (Negative) Test Performed by: [facility] - [address] [address] 27 Negative for dsDNA antibody by enzyme immunoassay. No further testing recommended. REFERENCE VALUE <30.0 (Negative) Test Performed by: [facility] - [address] [address] 28 RESULT: Compatible with early connective tissue disease. Test Performed by: [address] [address] 29 REFERENCE VALUE <1.0 (Negative) 30 REFERENCE VALUE <1.0 (Negative) 31 REFERENCE VALUE <1.0 (Negative) 32 REFERENCE VALUE <1.0 (Negative) 33 REFERENCE VALUE <1.0 (Negative) 34 REFERENCE VALUE <1.0 (Negative) Test Performed by: [facility] - [address] [address] 35 Because ethnic data is not always readily [...] 15-29 5 Kidney failure <15 (or dialysis) 36 Interpretation: Positive (3.0-5.9) REFERENCE VALUE <=1.0 (Negative) 37 REFERENCE VALUE <20.0 (Negative) Test Performed by: [facility] - [address] [address] 38 Serologic response to B. burgdorferi infection is not detected, but cannot rule out early infection during which low or undetectable antibody levels to B. burgdorferi may be present. If clinically indicated, a new serum specimen should be submitted in 7-14 days. Test Performed by: [facility] [employer] - [facility] [address] [place] [address] 39 Please note: The following may produce a false positive D Dimer test: - Rheumatoid factor greater than 60 IU/ml - Plasma hemoglobin greater than 0.05 gm/dl - Bilirubin greater than 50 mg/dl - Lipids greater than 1000 mg/dl - FDP greater than 20 ug/ml 40 Because ethnic data is not always readily [...] 15-29 5 Kidney failure <15 (or dialysis) 41 >100 to <200 pg/mL: likely compensated congestive heart failure (CHF) 200 to 400 pg/mL: likely moderate CHF >400 pg/mL: likely moderate to severe CHF 42 Acute inflammation: >10.00 43 Because ethnic data is not always readily [...] Kidney failure <15 (or dialysis) Procedures Date Code Description Status 03/03/201894689 Inject/Drain Joint/Bursa Major W/O US Completed 04/24/201798043 Inject/Drain Joint/Bursa Major W/O US Completed 01/25/2015 73537 Lopez/Facet/Foraminotomy;Vertebral Segment; Lumbar Completed 01/25/2015 89263 Laminotomy W/Decomp NRV RT,One Interspace,Lumbar Completed 01/18/2015 65304 EKG, Interpretation Only Completed 03/28/2012 44993 Rad Exam; Both Knees, Standing Ap Completed 03/28/2012 57659 Inject/Drain Joint/Bursa Major W/O US Completed 05/16/2011 55999 Xray Knee 3 Views Completed 05/16/2011 27363 Rad Exam; Knee, Ap&L Completed 05/16/2011 46673 Rad Exam; Hip Unilat Comp Completed 05/16/2011 80968 Rad Exam; Hip Unilat Completed 05/16/2011 20704 Rad Exam; Pelvis Completed Encounters Type Date Location Provider Dx Diagnosis Office Visit 11/28/2017 Rheumatology Fransisco Rodrigues, M35.3 Polymyalgia 1:20p [facility] Sutton rheumatica 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 Dina Brent, J11.1 Flu due to Assoc,pc N.P. unidentified Hospitalists influenza virus w oth resp manifest N40.1 Benign prostatic hyperplasia with lower urinary tract symp R39.14 Feeling of incomplete bladder emptying K21.9 Gastro-esophageal reflux disease without esophagitis Office Visit 06/05/2017 2:20p [facility] Internal Ike Andrews R60.0 Localized edema Lesley Mcmahan E03.9 Hypothyroidism, unspecified R93.2 Abnormal findings on dx imaging of liver and biliary tract Office Visit 05/27/2017 11:40a [facility] Internal Ike Andrews R60.0 Localized edema Lesley Mcmahan E03.9 Hypothyroidism, unspecified Office Visit 05/20/2017 [facility] Internal Maryam S43.422A Sprain of left 1:10p Marquita Aguilar NP rotator cuff Rd capsule, initial encounter Office Visit 04/24/2017 Orthopedic Iker Garces, M17.12 Unilateral 3:00p [facility] primary C.M.A. osteoarthritis, left knee Office Visit 03/21/2017 [facility] Henri Andrews L98.9 Disorder of the 2:40p Marquita Chester M.D. skin and [place] subcutaneous tissue, unspecified Office Visit 08/14/2016 [facility] Internal Ike Andrews E03.9 Hypothyroidism, 1:40p Marquita Chester M.D. unspecified Roland K21.9 Gastro-esophageal reflux disease without esophagitis N40.0 Benign prostatic hyperplasia without lower urinry tract symp Z85.828 Personal history of other malignant neoplasm of skin Office Visit 08/17/2015 Orthopedic Nelda M16.11 Unilateral primary 8:00a [facility] Ortega osteoarthritis, right C.M.A. hip M17.0 Bilateral primary osteoarthritis of knee M25.551 Pain in right hip M25.462 Effusion, left knee M25.562 Pain in left knee Office Visit 01/13/2015 Neurosurgery Riaz M51.26 Other 2:30p [facility] Post M.D. intervertebral disc displacement, lumbar region M48.06 Spinal stenosis, lumbar region Office Visit 03/28/2012 2:45p Orthopedic Iker Garces, 715.95 Osteoarthrosis [facility] Unspec Genlzd Or C.M.A. Localized Pelvic & Thigh 715.96 Osteoarthrosis Unspec Genlzd Or Localized Lower Leg Office Visit 05/16/2011 9:15a Orthopedic Iker Garces, 715.95 Osteoarthrosis [facility] Unspec Genlzd Or C.M.A. Localized Pelvic & Thigh 715.95 Osteoarthrosis Unspec Genlzd Or Localized Pelvic & Thigh 715.96 Osteoarthrosis Unspec Genlzd Or Localized Lower Leg 716.95 Arthropathy Unspec Pelvic & Thigh 724.4 Neuritis Or Radiculitis Thoracic Or Lumbosacral Unspec 715.96 Osteoarthrosis Unspec Genlzd Or Localized Lower Leg 719.45 Pain Joint Pelvic Region & Thigh 716.96 Arthropathy Unspec Lower Leg Plan of Treatment Future Appointment(s):01/20/2019 9:20 am - Ike Chester M.D. at [facility] Internal Medicine - Nxwhnxgsa48/06/2018 8:40 am - Fransisco Rodrigues M.D. at [facility]03/03/2018 - Iker Garces M.D.M17.12 Unilateral primary osteoarthritis, left kneeNew Xrays:Knees Bilateral, Ordered: ollow up:Follow up: As needed Let me know if you want to schedule knee replacement Stay active as ableM17.11 Unilateral primary osteoarthritis, right kneeNew Xrays:Knees Bilateral, Ordered: 03/03/18
[2018-03-08] MEDS ORDERED: HYDROcodone/ACETAMIN 5-325 MG* 1 TAB PO ONE (16:21)
[2018-03-08] MEDS ORDERED: Ondansetron INJ* 2 MG/ML VIAL IV ONE (17:33)
[2018-03-08] MEDS ORDERED: HYDROmorphone INJ1* 1 MG/ML SYRINGE IV SLOW PU ONE (17:33)
[2018-03-08 17:34] LABS: ABS Basophils 0 10^3/ul (0-0.2); ABS Eosinophils 0.1 10^3/ul (0-0.6); ABS Lymphocytes 1.3 10^3/ul (1.0-4.8); ABS Monocytes 0.5 10^3/ul (0-0.8); ABS Neutrophils 7.1 10^3/ul (1.5-7.7); ABS Nucleated RBC 0 10^3/ul; Eosinophil % 0.6 %; Hematocrit 40 % (42-52); Hemoglobin 13.1 g/dl (14.0-18.0); Lymphocyte % 14.9 %; Mean Corpuscular HGB Conc 33 g/dl (31-36); Mean Corpuscular Hemoglobin 32 pg (27-31); Mean Corpuscular Volume 96 fL (80-94); Mean Platelet Volume 8.7 fL (7.4-10.4); Nucleated Red Blood Cells % 0; Platelet Count 192 10^3/ul (150-450); Red Blood Count 4.16 10^6/ul (4.00-5.40); Red Cell Distribution Width 14 % (10.5-15)
[2018-03-08 17:38] LABS: Urine Appearance Clear; Urine Blood Negative (Negative); Urine Color Yellow; Urine Ketones Negative (Negative); Urine Protein Negative (Negative); Urine Specific Gravity 1.017 (1.010-1.030); Urine Urobilinogen Negative (Negative)
[2018-03-08 17:49] LABS: EGFR Non-African American 60.2 (>60)
[2018-03-08] MEDS ORDERED: oxyCODONE/Acetamin 5/325 MG* TAB PO PRN (18:40)
[2018-03-08] MEDS ORDERED: HYDROmorphone INJ* 0.5 MG/0.5 ML SYRINGE IV SLOW PU PRN (18:40)
[2018-03-08] MEDS ORDERED: NS 0.9% 1000 ML* 1,000 ML IV SCH (18:45)
[2018-03-08] MEDS ORDERED: HYDROmorphone INJ1* 1 MG/ML SYRINGE IV SLOW PU PRN (19:04)
[2018-03-08] MEDS: oxyCODONE/Acetamin 5/325 MG* TAB PO PRN (20:33)
[2018-03-08] MEDS: Tamsulosin CAP* 0.4 MG PO SCH (20:33)
[2018-03-08] MEDS: Omeprazole CAP* 20 MG PO SCH (20:33)
[2018-03-08] MEDS: Heparin VIAL(*) 5000 UNITS/ML VIAL (FIVE THOUSAND) SUBCUT SCH (22:30)
--- NOTE | 2018-03-08 23:48 | HP ---
CC: Dr. Chester * [facility] MEDICINE HISTORY AND PHYSICAL: DATE OF ADMISSION: 03/08/18 PRIMARY CARE PHYSICIAN: Dr. Chester ATTENDING PHYSICIAN: Dr. Etelvina Hardy * (dictation provided by Dina Kennedy NP ) CHIEF COMPLAINT: Fall with right hip pain. HISTORY OF PRESENT ILLNESS: Mr. Muñoz is an 87-year-old male with a past medical history of BPH, GERD, and polymyalgia rheumatica on low dose prednisone therapy who presents today to hospital after mechanical fall at home and right hip pain. Mr. Muñoz states he has been in excellent state of health. He is a very active 87- year-old male. He exercises on a regular basis. He states today he was out taking a battery out of a backhoe when he slipped and fell on the ice onto his right side. He had immediate severe pain to his right stand and was unable to stand. He crawled well over 100 feet into the garage where he was able to get a phone and call his who was inside the home. Then EMS was called and he was brought to the hospital. The patient denies any recent illnesses. He denies fevers chills, cough, chest pain, shortness of breath, nausea, vomiting, diarrhea, or abdominal pain. In the emergency room, Mr. Muñoz was confirmed to have a right displaced fracture of the femoral neck. His labs were unremarkable. His vitals were stable. PAST MEDICAL HISTORY: 1. BPH. 2. GERD. 3. Polymyalgia rheumatica with swelling in his hands and feet on low dose prednisone therapy, managed by Dr. Rodrigues. MEDICATIONS: 1. Omeprazole 20 mg p.o. at bedtime. 2. Colchicine 1 tab p.o. daily. 3. Prednisone 1 mg p.o. daily. 4. Naprosyn 220 mg p.o. b.i.d. 5. Levothyroxine 25 mcg p.o. daily. 6. Finasteride 5 mg p.o. daily. 7. Cholecalciferol 1000 units p.o. daily. 8. Tamsulosin stated to be 0.8 mg p.o. b.i.d. 9. Psyllium pack 2 teaspoons daily. ALLERGIES: No known drug allergies. FAMILY HISTORY: Reviewed and noncontributory. SOCIAL HISTORY: No report of alcohol, tobacco, or drug use. The patient lives with his , is his healthcare proxy. REVIEW OF SYSTEMS: A 14-point review of systems was completed with Mr. Muñoz and all those not mentioned above were negative. PHYSICAL EXAMINATION GENERAL: Mr. Muñoz is lying in the bed with his at the bedside. He is in no acute distress. VITAL SIGNS: Temperature 96.6, pulse rate 58, respiratory rate 22, O2 saturation 98% currently on 3 L nasal cannula, and blood pressure 137/63. LUNGS: Clear to auscultation bilaterally today with no accessory muscle use and good aeration. HEART: S1, S2. No murmur, rub, or gallop, and regular. ABDOMEN: Soft and nontender. Bowel sounds positive x4. EXTREMITIES: No cyanosis or edema. NEURO: He is alert. He is oriented x3. He moves all extremities equally except for the right lower extremity whose movement is limited by pain. SKIN: Intact. DIAGNOSTIC STUDIES/LAB DATA: WBC 9.0, hemoglobin 13.1, hematocrit 40, platelet count 192. Sodium 136, potassium 4.7, chloride 102, serum bicarbonate 25, BUN 36, creatinine 1.15, glucose 121. Urine shows no infection. The patient hip pelvic x-ray is read as follows. Displaced fracture of the right femoral neck. This is confirmed on the femur x-ray. EKG shows sinus bradycardia with PVC. No evidence of ischemia. Heart rate of almost 60. ASSESSMENT AND PLAN: Mr. Muñoz is an 87-year-old male with a past medical history of BPH, GERD, and polymyalgia rheumatica on very low dose prednisone therapy who presents to the hospital today with concern for mechanical fall resulting in a right hip fracture. Our plan are for inpatient admission as expected length of stay will be greater than 2 days for the followin. Right hip fracture: The patient informs this as purely mechanical fall. Michael has been contacted by the emergency department and she will be providing consultation from the orthopedic surgery team in terms of perioperative evaluation and risk stratification. The patient appears to be in excellent health and have a excellent exercise capacity. He states he exercises at least 3 days per week and has no chest pain or shortness of breath with this activity. He has no cardiac risk factors and therefore has a 0.4% risk of untoward cardiac event in the perioperative period according to RCRI risk calculator. No further cardiac testing is indicated. The patient is medically optimized for surgery. 2. BPH. Continue on home medications. 3. History of polymyalgia rheumatica. The patient states he has been weaned down to 1 mg of prednisone per Dr. Rodrigues and they can continue this and that will have very little impact on his surgical recovery. 4. DVT prophylaxis with heparin subcu. 5. Code status is DNR and MOLST form is completed with the patient. TIME SPENT: Approximately, 60 minutes was spent in the admission of this patient, more than half the time spent with the patient at the bedside reviewing the events leading up to this hospitalization, performing the physical examination, and reviewing my plan of care. DINA KENNEDY NP [id number]/[facility] #: [id number] NORM
[2018-03-09] MEDS: oxyCODONE/Acetamin 5/325 MG* TAB PO PRN (05:56)
[2018-03-09] MEDS: Heparin VIAL(*) 5000 UNITS/ML VIAL (FIVE THOUSAND) SUBCUT SCH (05:56)
--- NOTE | 2018-03-09 07:53 | PN ---
Progress Note - Progress Note Date of Service: 03/09/18 Note: Pt seen and examined. Very active 87 yo with hip arthritis and now displaced femoral neck fracture. Discussed options and pt requested total hip arthroplasty. Discussed with partner Dr Ortega who will be assuming care. Full note dictated in chart. Plan for right total hip replacement.
[2018-03-09] MEDS ORDERED: Lidocaine 2% PF * 5 ML VIAL ONE (08:24)
[2018-03-09] MEDS ORDERED: fentaNYL* 50 MCG/ML 5 ML VIAL (250 MCG VIAL) ONE (08:24)
[2018-03-09] MEDS ORDERED: Dexamethasone IV* 4 MG/ML 1 ML (4 MG) ONE (08:24)
[2018-03-09] MEDS ORDERED: Midazolam* 1 MG/ML 5 ML VIAL (5 MG) ONE (08:24)
[2018-03-09] MEDS ORDERED: Ondansetron INJ* 2 MG/ML VIAL ONE (08:24)
[2018-03-09] MEDS ORDERED: Propofol* 10 MG/ML 20 ML BTL ONE (08:24)
[2018-03-09] MEDS ORDERED: Ketorolac INJ* 30 MG/ML 1 ML VIAL ONE (08:24)
[2018-03-09] MEDS ORDERED: KETAMINE HCL* 50 MG/ML 10 ML VIAL ONE (08:24)
[2018-03-09] MEDS ORDERED: Cisatracurium* 2 MG/ML MDV 5 ML ONE (08:24)
[2018-03-09] MEDS ORDERED: ceFAZolin 2 GM PREMIX in ORs 2 GM/50 ML BAG IVPB ONE (08:49)
[2018-03-09] MEDS: Cholecalciferol TAB* 1000 UNITS PO SCH (08:56)
[2018-03-09] MEDS: Psyllium PAK PO SCH (08:56)
[2018-03-09] MEDS: Levothyroxine TAB* 25 MCG TAB PO SCH (08:56)
[2018-03-09] MEDS: predniSONE TAB* 1 MG PO SCH (08:56)
[2018-03-09] MEDS: Colchicine* 0.6 MG TAB PO SCH (08:56)
[2018-03-09] MEDS: Finasteride TAB* 5 MG PO SCH (08:56)
[2018-03-09] MEDS: Tamsulosin CAP* 0.4 MG PO SCH ×2 (08:56→21:33)
[2018-03-09] MEDS ORDERED: Atropine 1MG/ML INJ* 1 ML VIAL ONE (09:44)
[2018-03-09] MEDS ORDERED: Bupivacaine 0.5% PF 10 ML VIAL INJ ONE (09:51)
[2018-03-09] MEDS ORDERED: HYDROmorphone INJ1* 1 MG/ML SYRINGE IV PRN (10:48)
[2018-03-09] MEDS ORDERED: Naloxone* 0.4 MG/ML 1 ML VIAL IV PRN (10:48)
[2018-03-09] MEDS ORDERED: fentaNYL* 50 MCG/ML 2 ML VIAL (100 MCG VIAL) IV PRN (10:48)
[2018-03-09] MEDS ORDERED: Ondansetron INJ* 2 MG/ML VIAL IV PRN (10:48)
--- NOTE | 2018-03-09 13:17 | CONS ---
CC: PCP CONSULTATION NOTE: DATE OF CONSULT: 03/09/18 ATTENDING PHYSICIAN: Power Rodriguez MD CHIEF COMPLAINT: Right hip pain. HISTORY OF PRESENT ILLNESS: Briefly, Mr. Muñoz is an 87-year-old male who sustained mechanical fal l while he was out trying to change battery in his backhoe who was about [address]. He then crawled all the way to the house because he was unable to weight bear. Then, he was brought to ER through EMS and brought to the hospital. He was diagnosed with the right hip fracture. He is otherwise fairly healthy. He denies recent illnesses. He is turning 88 in less than a week. He is the patient of Dr. Garces and had injections recently in his bilateral knees for knee arthritis. PAST MEDICAL HISTORY: BPH; GERD; polymyalgia rheumatica, treated by Dr. Rodrigues. He has swelling in h is hands and feet and he is on low-dose prednisone therapy. MEDICATIONS: 1. Omeprazole. 2. Colchicine. 3. Prednisone 1 mg a day. 4. Naprosyn. 5. Levothyroxine. 6. Finasteride. 7. Cholecalciferol. 8. Tamsulosin. 9. Psyllium pack. ALLERGIES: None. FAMILY HISTORY: Reviewed and negative. SOCIAL HISTORY: He denies alcohol and tobacco. He lives with his . He is right hand dominant. He walks with no assistive devices. He works out 3 times a week at [employer] for 2- 1/2 hours of time doing weight training and cardio. REVIEW OF SYSTEMS: A 14-point review of systems was reviewed with the patient and is significant onl y for the above complaint, bilateral knee osteoarthritis and previous history of hip and back pain wi th arthritis in the knees and hips. Otherwise, remainder of the systems is negative. PHYSICAL EXAM: He is in no acute distress. He is well developed, well nourished. He is alert and or iented x3. He has pleasant mood and normal affect. Vitals: Temperature 97.3, pulse of 52, respirato ry rate 16, O2 saturation is 99%. He is currently on oxygen. Blood pressure 133/65. EOMI. Chest: Clear to auscultation. Heart is regular rate and rhythm. Abdomen is soft, nontender. Examination o f the right hip demonstrates the skin is intact. There is no edema or warmth. He is able to dorsifl ex and plantarflex his ankles. He can flex and extend his toes. He is sensate to light touch about the first dorsal webspace, medial, lateral, dorsal, and planter foot. He has 2+ PT pulses. Calf is soft and nontender. DIAGNOSTIC STUDIES/LAB DATA: X-rays of the right hip and full length femur demonstrates advanced bon e-on-bone arthritis of the right hip as well as no masses about the length of the femur. He had disp laced femoral neck fracture. Labs obtained on 03/08/18 demonstrated a white count of 9, hematocrit of 40, and platelets 192. Sodi um 136, potassium 4.7, chloride 102, carbon dioxide 25, BUN 36, creatinine at 1.15. UA is negative. ASSESSMENT AND PLAN: He has a right displaced femoral neck fracture. He also has a history of right hip osteoarthritis and it has been bothering him off and on for several years. He is very active an d is a retired [employer]. He works out 3 times a time. At this point, he asked specifically about sayra oing a total hip replacement versus a hemiarthroplasty. I did state that he is older than the typica l guidelines, but he is very active. I do think that the total hip arthroplasty would be best for stefano nicole as he may require a vision surgery down the road. I have called my joint fellowship trained randy dan and she will be doing the case, Dr. Ortega. We will continue to follow the patient in hospital. Re viewed briefly about the risks and benefits of the surgery, risks include, but are not limited to, bl eeding; infection; damage to nerves, vessels, surrounding structures; wound nonhealing; persistent pa in; need for further surgery; scarring; stiffness; incomplete relief of symptoms; risk of anesthesia; risk of DVT; limb length inequality; fracture; and dislocation. [id number]/[facility] #: [id number]
--- NOTE | 2018-03-09 14:12 | PN ---
Subjective Date of Service: 03/09/18 Interval History: Pt seen and examined. Meds and labs reviewed. Underwent right total hip replacement a few hours ago. Pt seen in PACU. CC: N/A ROS: Denied KERN/dizziness, F/C, N/V, CP, SOB, increased cough, sputum production , abd pain, diarrhea, constipation, dysuria, myalgias, arthralgias, throat pain , and new skin lesions. The rest of the 14 point ROS are unremarkable. PHYSICAL EXAM: GEN APPEARANCE: Awake, not in acute distress HEENT: NC/AT, PERRLA, moist oral mucosa, (-) throat erythema NECK: Soft, supple, (-) cervical LAD, (-)JVD HEART: S1S2 WNL, RRR, No MRG CHEST: CTA, BL, GAE, No W/R/R ABD: Soft, ND/NT, NABS 4x Q EXT: No C/C/E SKIN: Warm to touch PSYCH: No active psychosis, hallucinations, depression, SI/HI Objective Active Medications: Acetaminophen (Tylenol Tab*) 650 mg PO Q6H PRN PRN Reason: PAIN Cholecalciferol (Vitamin D Tab*) 1,000 units PO DAILY [facility] Last Admin: 03/09/18 08:56 Dose: Not Given Colchicine (Colcrys*) 0.6 mg PO DAILY [facility] Last Admin: 03/09/18 08:56 Dose: Not Given Finasteride (Proscar Tab*) 5 mg PO DAILY [facility] Last Admin: 03/09/18 08:56 Dose: Not Given Heparin Sodium (Porcine) (Heparin Vial(*)) 5,000 units SUBCUT Q12H [facility] Hydromorphone HCl (Dilaudid Inj1s*) 0.5 mg IV SLOW PU Q4H PRN PRN Reason: PAIN Last Admin: 03/08/18 22:31 Dose: 0.5 mg Sodium Chloride (Ns 0.9% 1000 Ml*) 1,000 mls @ 75 mls/hr IV PER RATE [facility] Last Admin: 03/08/18 20:10 Dose: 75 mls/hr Levothyroxine Sodium (Synthroid Tab*) 25 mcg PO DAILY [facility] Last Admin: 03/09/18 08:56 Dose: Not Given Omeprazole (Prilosec Cap*) 20 mg PO BEDTIME [facility] Last Admin: 03/08/18 20:33 Dose: 20 mg Oxycodone/Acetaminophen (Percocet 5/325 Tab*) 2 tab PO Q4H PRN PRN Reason: PAIN Oxycodone/Acetaminophen (Percocet 5/325 Tab*) 1 tab PO Q4H PRN PRN Reason: PAIN Last Admin: 03/09/18 05:56 Dose: 1 tab Prednisone (Deltasone Tab*) 1 mg PO DAILY [facility] Last Admin: 03/09/18 08:56 Dose: Not Given Psyllium Hydrophilic Mucilloid (Metamucil Palomo*) 1 pkt PO DAILY [facility] Last Admin: 03/09/18 08:56 Dose: Not Given Tamsulosin HCl (Flomax Cap*) 0.4 mg PO BID [facility] Last Admin: 03/09/18 08:56 Dose: Not Given Vital Signs - 8 hr 03/09/18 03/09/18 03/09/18 07:57 11:23 11:28 Temperature 98.1 F 97.0 F Pulse Rate 52 71 71 Respiratory 18 16 16 Rate Blood Pressure 144/56 108/58 128/59 (mmHg) O2 Sat by Pulse 97 97 98 Oximetry 03/09/18 03/09/18 03/09/18 11:40 11:43 11:46 Temperature Pulse Rate 67 78 78 Respiratory 20 16 26 Rate Blood Pressure 115/64 123/66 (mmHg) O2 Sat by Pulse 98 98 98 Oximetry 03/09/18 03/09/18 03/09/18 11:50 12:00 12:15 Temperature Pulse Rate 75 71 73 Respiratory 22 17 23 Rate Blood Pressure 109/63 138/56 126/61 (mmHg) O2 Sat by Pulse 95 98 97 Oximetry 03/09/18 03/09/18 03/09/18 12:30 12:45 13:00 Temperature Pulse Rate 62 60 58 Respiratory 18 15 15 Rate Blood Pressure 117/60 113/67 127/51 (mmHg) O2 Sat by Pulse 94 96 95 Oximetry 03/09/18 03/09/18 03/09/18 13:01 13:27 13:30 Temperature 98.6 F 98.6 F Pulse Rate 77 72 72 Respiratory 23 18 18 Rate Blood Pressure 120/58 120/58 (mmHg) O2 Sat by Pulse 93 95 95 Oximetry 03/09/18 13:46 Temperature Pulse Rate Respiratory 18 Rate Blood Pressure (mmHg) O2 Sat by Pulse Oximetry Oxygen Devices in Use Now: Nasal Cannula Result Diagrams: 03/08/18 17:25 03/08/18 17:25 Assess/Plan/Problems-Billing Assessment: - Patient Problems (1) Displaced fracture of right femoral neck Current Visit: Yes Status: Acute Code(s): S72.001A - FRACTURE OF UNSP PART OF NECK OF RIGHT FEMUR, INIT SNOMED Code(s): 7628592 Comment: -S/P right total hip replacement PD #0 -Defer with future perioperative input from orthopedics -For PT/OT eval (2) BPH (benign prostatic hyperplasia) Current Visit: No Status: Acute Code(s): N40.0 - BENIGN PROSTATIC HYPERPLASIA WITHOUT LOWER URINRY TRACT SYMP SNOMED Code(s): 947286148 Comment: -Continue Finasteride and Tamsulosin as ordered (3) PMR (polymyalgia rheumatica) Current Visit: Yes Status: Acute Code(s): M35.3 - POLYMYALGIA RHEUMATICA SNOMED Code(s): 90380551 Comment: -Continue PRN pain meds and prednisone (4) Hypothyroidism Current Visit: Yes Status: Acute Code(s): E03.9 - HYPOTHYROIDISM, UNSPECIFIED SNOMED Code(s): 99076261 Comment: -Continue Levothyroxine -Previous TSH on 09/12/17 WNL---will redraw level in AM (5) DVT prophylaxis Current Visit: No Status: Acute Code(s): WLL9638 - SNOMED Code(s): 160229743 Comment: -Will change frequency of Heparin SQ to q12H due to advanced age Status and Disposition: -For PT/OT eval -Will await any further input from ortho
[2018-03-09] MEDS: Acetaminophen TAB* 325 MG PO PRN (14:43)
[2018-03-09] MEDS ORDERED: Morphine VIAL* 4 MG/ML VIAL (1 ml vial) IV PRN (17:00)
[2018-03-09] MEDS ORDERED: Cyclobenzaprine TAB* 10 MG PO PRN (17:01)
[2018-03-09] MEDS ORDERED: oxyCODONE TAB* 5 MG TAB PO PRN (17:01)
[2018-03-09] MEDS ORDERED: Heparin VIAL(*) 5000 UNITS/ML VIAL (FIVE THOUSAND) SUBCUT SCH (18:00)
[2018-03-09] MEDS: ceFAZolin 1 GM in Dextrose (*) 1 GM/50 ML BAG IVPB SCH (18:53)
--- NOTE | 2018-03-09 20:12 | CONS ---
ORTHOPEDIC CONSULTATION NOTE: DATE OF CONSULT: 03/09/18 CHIEF COMPLAINT: Right hip pain. INTERVAL HISTORY: Mr. Muñoz is an 87-year-old active community ambulator who saw me several years ago for severe arthritis of the right hip. He had a fall on 03/08/18 while changing the battery in his backhoe. He landed on his right side, he had immediate 10/10 pain in the right hip with inability to ambulate. He was eventually brought to [facility] by ambulance and diagnosed with a displaced femoral neck fracture. Dr. Rodriguez, my colleague, was on-call. The patient and Dr. Rodriguez decided a total hip arthroplasty would be most appropriate and they did consult me for surgical care. I am pleased to take part in his care. PHYSICAL EXAM: He is afebrile with stable vitals. HEENT: Atraumatic, normocephalic. Pupils are equal and reactive to light. Chest: Unlabored breathing. Right lower extremity shows skin to be intact. Leg is shortened and externally rotated. There are no open wounds or abrasions. Tenderness along the thigh with minimal swelling. Distally neurovascularly intact with 5/ 5 ankle dorsiflexion and plantarflexion strength. Full sensation to light touch in all nerve distributions and 2+ palpable DP pulse. DIAGNOSTIC STUDIES: Radiographs are reviewed by me. These show a displaced femoral neck fracture. 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 ASSESSMENT AND PLAN: Mr. Muñoz is an 87-year-old active community ambulator with a mechanical fall and a displaced femoral neck fracture of the right hip. He has baseline advanced arthritis. Today, we discussed that he is an appropriate candidate for total hip arthroplasty. We discussed the risks and benefits of the surgery and he wishes to proceed. He understands the risks of surgery include, but are not limited to, bleeding, infection, damage to nearby structures, continued pain, need for further surgery, intraoperative fracture, nerve palsy, hardware failure or loosening, dislocation, leg length discrepancy , stroke, heart attack, blood clot, and . She wishes to proceed. The patient's main concern is dislocation due to his father having a dislocated hip. We discussed the MDM implant and he would prefer this. He understands and accepts posterior hip precautions postoperatively. He is n.p.o. now, on bed rest. We will take him with the next available OR for right total hip arthroplasty. [id number]/[facility] #: [id number] NORM
[2018-03-09] MEDS: Docusate CAP* 100 MG PO SCH (21:31)
[2018-03-09] MEDS: Omeprazole CAP* 20 MG PO SCH (21:33)
--- NOTE | 2018-03-10 00:45 | OP ---
DATE OF OPERATION: 03/09/18 - ROOM #349 DATE OF : 30 ATTENDING SURGEON: Nelda Ortega MD ABSTRACT CLERK: RITA Odell. Ms. Tran did help throughout the procedure with preparation of the leg, wound retraction, manipulation of the hip , and wound closure. ANESTHESIOLOGIST: Dr. Crowley. ANESTHESIA: General. PRE-OP DIAGNOSIS: Right displaced femoral neck fracture with osteoarthritis of the right hip joint. POST-OP DIAGNOSIS: Right displaced femoral neck fracture with osteoarthritis of the right hip joint. OPERATIVE PROCEDURE: Right total hip arthroplasty. COMPLICATIONS: None. ESTIMATED BLOOD LOSS: 200 cc. SPECIMEN: Femoral head and acetabular reaming sent to pathology. IMPLANTS: This is uncemented [place] total hip arthroplasty hardware. For the cup, a 56E Tritanium cluster hole shell. A single 20-mm screw and cementless MDM liner 42E. For the stem, an Accolade II, size 7 with a 127-degree neck. For the head, a Biolox delta ceramic V40 femoral head 28 -2.7 and the MDM liner X 28/48/42E. BRIEF HISTORY/INDICATION: Mr. Muñoz is an 87-year-old gentleman, who had a fall while changing the battery on his backhoe on 03/08/18. He is a community ambulator, quite active with known osteoarthritis of the right hip. For these reasons, he did request to have total hip arthroplasty for fixation of the fracture instead of hemiarthroplasty. My colleague, Dr. Rodriguez, did consult with me and I agreed to take on this operative case. Informed consent was obtained from the patient. He understood the risks of surgery included but were not limited to bleeding, infection, damage to nearby structures, continued pain, need for further surgery, intraoperative fracture, dislocation, leg length discrepancies, stroke, heart attack, blood clot, and . He wished to proceed. We discussed different implants and he requested the MDM implant for increased stability. INTRAOPERATIVE FINDINGS: Intraoperatively, the patient was noted to have significant osteopenia. He had extensive arthritis with complete loss of cartilage in the femoral head and acetabulum. He had a comminuted, displaced femoral neck fracture. DESCRIPTION OF PROCEDURE: Mr. Muñoz was identified in the preanesthesia unit. His right lower extremity was marked as the correct operative site. Informed consent was signed and placed in the chart. The patient was taken to the operating room and placed under general anesthesia. A Rae catheter was placed. He was placed in the left lateral decubitus position on the peg board. All bony prominences were well padded. Right lower extremity was prepped and draped in the usual sterile fashion. Preop time-out was made to correctly identify the patient, side, and site. Appropriate perioperative antibiotics were given within 1 hour of incision. A standard posterior hip incision of 12 cm was made with a 10-blade and carried down to the lateral fascial layer. Lateral fascial layer was incised in line with the skin incision. Charnley retractor was placed and the posterior hip was visualized. The piriformis and conjoint tendons were elevated off the posterolateral femur using electrocautery. These were tagged with #5 Ethibond. Next, electrocautery was used to make a standard posterolateral capsular flap and this was also tagged with #5 Ethibond. The femoral neck fracture was visible. The proximal femur was presented and an oscillating saw was used to make a clean cut on the femoral neck. Bony fragments were carefully removed. Next, the femur was retracted anteriorly. A corkscrew was used to remove the femoral head. After appropriate placement of retractor, the acetabulum was well visualized. Long- handle knife was used to sharply remove any remaining labrum from the acetabular rim. There was complete loss of cartilage along the acetabulum with significant osteophyte formation superiorly and laterally. The acetabulum was sequentially reamed up to a size 55. A 55 reamer obtained a bleeding subchondral bone bed. A 55 trial had excellent fit and stability. Final implant chosen was a 56E Tritanium cluster hole shell. This was impacted into the acetabulum without difficulty. There was excellent stability and appropriate anteversion and abduction angle. A single 20-mm screw was placed in the superoposterior quadrant for extra stability. An MDM cementless liner 42E was chosen and impacted into the acetabulum. Stability of the liner was checked and rechecked and noted to be stable. Some anterior osteophyte was removed to avoid any impingement here. Next, attention was turned to preparation of the proximal femur. A canal finder was used to enter the proximal femur. Femur was sequentially broached up to a size 7. Size 7 broach had excellent fit and stability with appropriate anteversion. A 132 neck trial was chosen with a +0 head trial. Hip was reduced and taken through range of motion. Hip was noted to be stable on all positions. There was good soft tissue tension and appropriate leg lengths. Hip was carefully dislocated. All trials were removed. Final implant chosen was an Accolade II, size 7 with a 132-degree neck angle. This was impacted into the femoral neck without difficulty. Final head chosen was a Biolox delta ceramic V40 femoral head 28 -2.7 with an MDM liner insert of 28/48/42E. These were impacted onto the femoral neck. The hip was reduced and taken through range of motion. The hip was stable in all positions. There was good soft tissue tension and appropriate leg lengths. The wound was copiously irrigated with sterile saline. Previously tagged capsule and tendons were reapproximated to the posterolateral femur through two trochanteric drill holes. The lateral fascial layer was closed using interrupted #1 Vicryl. The rest of the incision was closed in a layered fashion using 0 and 2-0 Vicryls. Skin was closed using running 3-0 Monocryl and Dermabond. Sterile Adaptic, 4x4s, and paper tape were used to cover the incision. The patient's anesthesia was reversed without difficulty. He was taken to the PACU in stable condition. Intended weightbearing will be weightbearing as tolerated. Intended DVT prophylaxis will be Lovenox 40 mEq subcutaneously daily x1 month. [id number]/[facility] #: [id number] MTDD
[2018-03-10] MEDS: ceFAZolin 1 GM in Dextrose (*) 1 GM/50 ML BAG IVPB SCH ×2 (02:27→09:25)
[2018-03-10 05:56] LABS: ABS Basophils 0 10^3/ul (0-0.2); ABS Eosinophils 0.2 10^3/ul (0-0.6); ABS Lymphocytes 1.4 10^3/ul (1.0-4.8); ABS Monocytes 0.8 10^3/ul (0-0.8); ABS Neutrophils 7.1 10^3/ul (1.5-7.7); ABS Nucleated RBC 0 10^3/ul; Eosinophil % 1.9 %; Hematocrit 30 % (42-52); Hemoglobin 10.1 g/dl (14.0-18.0); Mean Corpuscular HGB Conc 34 g/dl (31-36); Mean Corpuscular Hemoglobin 33 pg (27-31); Mean Corpuscular Volume 97 fL (80-94); Mean Platelet Volume 9.1 fL (7.4-10.4); Nucleated Red Blood Cells % 0; Platelet Count 132 10^3/ul (150-450); Red Blood Count 3.09 10^6/ul (4.00-5.40); Red Cell Distribution Width 14 % (10.5-15); White Blood Count 9.5 10^3/ul (3.5-10.8)
[2018-03-10 06:19] LABS: EGFR Non-African American 60.2 (>60)
[2018-03-10] MEDS: Levothyroxine TAB* 25 MCG TAB PO SCH (09:32)
[2018-03-10] MEDS: Acetaminophen TAB* 325 MG PO PRN ×2 (09:32→18:55)
[2018-03-10] MEDS: Docusate CAP* 100 MG PO SCH ×3 (09:33→20:11)
[2018-03-10] MEDS: predniSONE TAB* 1 MG PO SCH (09:33)
[2018-03-10] MEDS: Finasteride TAB* 5 MG PO SCH (09:33)
[2018-03-10] MEDS: Tamsulosin CAP* 0.4 MG PO SCH ×2 (09:33→20:11)
[2018-03-10] MEDS: Cholecalciferol TAB* 1000 UNITS PO SCH (09:33)
[2018-03-10] MEDS: Colchicine* 0.6 MG TAB PO SCH (09:34)
[2018-03-10] MEDS: Psyllium PAK PO SCH (09:34)
--- NOTE | 2018-03-10 11:08 | PN ---
Progress Note - Progress Note Date of Service: 03/10/18 SOAP: Subjective: []Patient seen OOB in chair. present. He feels well. Pain is well managed. Denies SOB, CP, palpitations, nausea or dizziness. Objective: [] Vital Signs Temp 99.1 F 03/10/18 07:47 Pulse 70 03/10/18 07:47 Resp 18 03/10/18 09:30 BP 127/71 03/10/18 07:47 Pulse Ox 98 03/10/18 09:30 Intake & Output 03/09/18 03/10/18 03/10/18 18:59 06:59 18:59 Intake Total 0052 795 7483 Output Total 280 750 Balance 1120 -170 1540 Intake: IV Fluids 1400 1190 LR 1400 NS (0.9%) 1190 IVPB 150 ABX - CEFAZOLIN 150 Oral 0 580 200 Output: Urine 350 Rae 250 400 Residual 30 Rae 16 Fr 30 Laboratory Results - last 24 hr 03/10/18 03/10/18 05:15 05:15 WBC 9.5 RBC 3.09 L Hgb 10.1 L Hct 30 L MCV 97 H MCH 33 H MCHC 34 RDW 14 Plt Count 132 L MPV 9.1 Neut % (Auto) 74.6 Lymph % (Auto) 15.0 [place] % (Auto) 8.3 Eos % (Auto) 1.9 Baso % (Auto) 0.2 Absolute Neuts (auto) 7.1 Absolute Lymphs (auto) 1.4 Absolute Monos (auto) 0.8 Absolute Eos (auto) 0.2 Absolute Basos (auto) 0 Absolute Nucleated RBC 0 Nucleated RBC % 0 Sodium 136 Potassium 4.2 Chloride 107 Carbon Dioxide 24 Anion Gap 5 BUN 27 H Creatinine 1.15 Est GFR ( Amer) 72.8 Est GFR (Non-Af Amer) 60.2 BUN/Creatinine Ratio 23.5 H Glucose 109 H Calcium 8.0 L Phosphorus 2.9 Magnesium 1.8 L Total Bilirubin 0.60 AST 43 H ALT 18 Alkaline Phosphatase 49 Total Protein 5.4 L Albumin 3.0 L Globulin 2.4 Albumin/Globulin Ratio 1.3 TSH 2.20 Right hip dressing dry and intact calf NT and soft active DF right ankle sensation intact distally Assessment: [s/p RTH arthroplasty for femoral neck fracture, POD#1 Plan: []PT/OT WBAT RLE Lovenox 40 mg qd X 4 weeks Dressing change 03/11 Discharge home when PT/OT goals met and medically stable Follow up in 10-[address] Ortega
[2018-03-10] MEDS: Enoxaparin(*) 40 MG/0.4 ML SYR SUBCUT SCH (12:22)
--- NOTE | 2018-03-10 17:25 | PN ---
Subjective Date of Service: 03/10/18 Interval History: Resting in recliner on assessment. Daughter at bedside. Patient reports he is doing well and pain is controlled with Tylenol. Reports he is urinating without difficulty. Last BM Saturday prior to fall. Would like Metamucil scheduled for bedtime as that is when he takes it at home. Denies chest pain, palpitations, sob, n/v/d, numbness/tingling. Objective Active Medications: Acetaminophen (Tylenol Tab*) 650 mg PO Q6H PRN PRN Reason: PAIN Last Admin: 03/10/18 09:32 Dose: 650 mg Cholecalciferol (Vitamin D Tab*) 1,000 units PO DAILY [facility] Last Admin: 03/10/18 09:33 Dose: 1,000 units Colchicine (Colcrys*) 0.6 mg PO DAILY [facility] Last Admin: 03/10/18 09:34 Dose: 0.6 mg Cyclobenzaprine HCl (Flexeril Tab*) 10 mg PO Q8H PRN PRN Reason: PAIN/SPASMS Docusate Sodium (Colace Cap*) 100 mg PO TID [facility] Last Admin: 03/10/18 14:00 Dose: Not Given Enoxaparin Sodium (Lovenox(*)) 40 mg SUBCUT DAILY@1200 [facility] Last Admin: 03/10/18 12:22 Dose: 40 mg Finasteride (Proscar Tab*) 5 mg PO DAILY [facility] Last Admin: 03/10/18 09:33 Dose: 5 mg Hydromorphone HCl (Dilaudid Inj1s*) 0.5 mg IV SLOW PU Q4H PRN PRN Reason: PAIN Last Admin: 03/08/18 22:31 Dose: 0.5 mg Sodium Chloride (Ns 0.9% 1000 Ml*) 1,000 mls @ 75 mls/hr IV PER RATE [facility] Last Admin: 03/08/18 20:10 Dose: 75 mls/hr Levothyroxine Sodium (Synthroid Tab*) 25 mcg PO DAILY [facility] Last Admin: 03/10/18 09:32 Dose: 25 mcg Morphine Sulfate (Morphine Vial*) 2 mg IV Q2H PRN PRN Reason: PAIN Omeprazole (Prilosec Cap*) 20 mg PO BEDTIME [facility] Last Admin: 03/09/18 21:33 Dose: 20 mg Oxycodone HCl (Roxycodone Tab*) 10 mg PO Q4H PRN PRN Reason: PAIN Oxycodone/Acetaminophen (Percocet 5/325 Tab*) 2 tab PO Q4H PRN PRN Reason: PAIN Oxycodone/Acetaminophen (Percocet 5/325 Tab*) 1 tab PO Q4H PRN PRN Reason: PAIN Last Admin: 03/09/18 05:56 Dose: 1 tab Prednisone (Deltasone Tab*) 1 mg PO DAILY [facility] Last Admin: 03/10/18 09:33 Dose: 1 mg Psyllium Hydrophilic Mucilloid (Metamucil Palomo*) 1 pkt PO BEDTIME [facility] Tamsulosin HCl (Flomax Cap*) 0.4 mg PO BID [facility] Last Admin: 03/10/18 09:33 Dose: 0.4 mg Vital Signs - 8 hr 03/10/18 03/10/18 03/10/18 09:30 11:54 15:52 Temperature 99.7 F Pulse Rate 72 72 Respiratory 18 16 16 Rate Blood Pressure 136/50 116/43 (mmHg) O2 Sat by Pulse 98 93 96 Oximetry 03/10/18 16:00 Temperature Pulse Rate Respiratory Rate Blood Pressure (mmHg) O2 Sat by Pulse 96 Oximetry Oxygen Devices in Use Now: None Appearance: Well appearing. Eyes: No Scleral Icterus Ears/Nose/Mouth/Throat: Clear Oropharnyx, Mucous Membranes Moist Respiratory: Symmetrical Chest Expansion and Respiratory Effort, Clear to Auscultation Cardiovascular: NL Sounds; No Murmurs; No JVD, RRR, No Edema Abdominal: NL Sounds; No Tenderness; No Distention Lymphatic: No Cervical Adenopathy Extremities: No Edema Skin: No Rash or Ulcers, - - Dressing to right hip is CDI Neurological: Alert and Oriented x 3 Nutrition: Taking PO's Result Diagrams: 03/10/18 05:15 03/10/18 05:15 Additional Lab and Data: Laboratory Results - last 24 hr 03/10/18 03/10/18 05:15 05:15 WBC 9.5 RBC 3.09 L Hgb 10.1 L Hct 30 L MCV 97 H MCH 33 H MCHC 34 RDW 14 Plt Count 132 L MPV 9.1 Neut % (Auto) 74.6 Lymph % (Auto) 15.0 [place] % (Auto) 8.3 Eos % (Auto) 1.9 Baso % (Auto) 0.2 Absolute Neuts (auto) 7.1 Absolute Lymphs (auto) 1.4 Absolute Monos (auto) 0.8 Absolute Eos (auto) 0.2 Absolute Basos (auto) 0 Absolute Nucleated RBC 0 Nucleated RBC % 0 Sodium 136 Potassium 4.2 Chloride 107 Carbon Dioxide 24 Anion Gap 5 BUN 27 H Creatinine 1.15 Est GFR ( Amer) 72.8 Est GFR (Non-Af Amer) 60.2 BUN/Creatinine Ratio 23.5 H Glucose 109 H Calcium 8.0 L Phosphorus 2.9 Magnesium 1.8 L Total Bilirubin 0.60 AST 43 H ALT 18 Alkaline Phosphatase 49 Total Protein 5.4 L Albumin 3.0 L Globulin 2.4 Albumin/Globulin Ratio 1.3 TSH 2.20 Microbiology and Other Data: . Diagnostic Imaging: . EKG Data: . Assess/Plan/Problems-Billing Assessment: 87 yr old male with pmh of BPH, GERD, and PMR (on low dose prednisone); who is status post right total hip arthoplasty after a fall and femoral neck fx - Patient Problems (1) Displaced fracture of right femoral neck Comment: -S/P right total hip replacement PD #1 -Per ortho PT/OT, WBAT RLE, Dressing change 03/11, Follow up with Dr Ortega in 10 to 14 days (2) PMR (polymyalgia rheumatica) Comment: -Continue PRN pain meds and prednisone (3) BPH (benign prostatic hyperplasia) Comment: -Continue Finasteride and Tamsulosin as ordered (4) DVT prophylaxis Comment: - Lovenox 40 mg subq daily per ortho. - Will continue Lovenox for 4 wks (5) GERD (gastroesophageal reflux disease) Comment: - Continue omeprazole. (6) Constipation Comment: - Last BM Thursday 03/08 prior to fall. - Requested to have Miralex changed to evening. - No N/V. - Abd assessment wnl. (7) Hypothyroidism Comment: -Continue Levothyroxine - TSH 2.20 (8) Electrolyte abnormality Comment: - Mag 1.8 - Will replace and reassess tomorrow (9) Anemia Comment: - Macrocytic anemia noted on admission with H&H at 13.1/40 - Post op H&H 10.1/30 - Suspected multifactorial due to fluids and surgery. - Will order B12 and Folate due to macrocytosis on admission Status and Disposition: -For PT/OT eval. Discharge when cleared by PT/OT and medically stable. Patient will be discharge home. Attending: Katia Iverson
[2018-03-10] MEDS ORDERED: Magnesium Sulfate 2 GM IV* 2 GM/50 ML BAG IVPB ONE (17:48)
[2018-03-10] MEDS: Omeprazole CAP* 20 MG PO SCH (20:11)
[2018-03-10] MEDS ORDERED: Psyllium PAK PO SCH (21:00)
[2018-03-11 05:34] LABS: ABS Basophils 0 10^3/ul (0-0.2); ABS Eosinophils 0.3 10^3/ul (0-0.6); ABS Lymphocytes 1.7 10^3/ul (1.0-4.8); ABS Monocytes 1.1 10^3/ul (0-0.8); ABS Neutrophils 6.3 10^3/ul (1.5-7.7); ABS Nucleated RBC 0 10^3/ul; Eosinophil % 3.2 %; Hematocrit 30 % (42-52); Hemoglobin 10.1 g/dl (14.0-18.0); Lymphocyte % 17.7 %; Mean Corpuscular HGB Conc 34 g/dl (31-36); Mean Corpuscular Hemoglobin 33 pg (27-31); Mean Corpuscular Volume 96 fL (80-94); Mean Platelet Volume 9.4 fL (7.4-10.4); Nucleated Red Blood Cells % 0; Platelet Count 128 10^3/ul (150-450); Red Blood Count 3.07 10^6/ul (4.00-5.40); Red Cell Distribution Width 14 % (10.5-15); White Blood Count 9.5 10^3/ul (3.5-10.8)
[2018-03-11 05:54] LABS: EGFR Non-African American 71.5 (>60)
[2018-03-11] MEDS: Colchicine* 0.6 MG TAB PO SCH (08:00)
[2018-03-11] MEDS: Tamsulosin CAP* 0.4 MG PO SCH (08:00)
[2018-03-11] MEDS: Acetaminophen TAB* 325 MG PO PRN (08:00)
[2018-03-11] MEDS: Cholecalciferol TAB* 1000 UNITS PO SCH (08:00)
[2018-03-11] MEDS: Levothyroxine TAB* 25 MCG TAB PO SCH (08:00)
[2018-03-11] MEDS: Finasteride TAB* 5 MG PO SCH (08:00)
[2018-03-11] MEDS: predniSONE TAB* 1 MG PO SCH (08:00)
[2018-03-11] MEDS: Docusate CAP* 100 MG PO SCH ×2 (08:00→15:15)
--- NOTE | 2018-03-11 11:39 | PN ---
Progress Note - Progress Note Date of Service: 03/11/18 SOAP: Subjective: []Patient seen OOB in chair. He is doing well. Denies hip pain, SOB, CP, dizziness or lightheadedness. He has done very well with therapy. He hopes to go home this afternoon. Objective: [] Vital Signs Temp 98.8 F 03/11/18 07:30 Pulse 75 03/11/18 07:30 Resp 16 03/11/18 07:43 BP 126/48 03/11/18 07:30 Pulse Ox 94 03/11/18 07:43 Intake & Output 03/10/18 03/11/18 03/11/18 18:59 06:59 18:59 Intake Total 1860 840 320 Output Total 400 1050 Balance 1460 -210 320 Intake: IV Fluids 1190 NS (0.9%) 1190 IVPB 150 ABX - CEFAZOLIN 150 Oral 520 840 320 Output: Urine 400 1050 Other: Estimated Void Medium Large Date of Last Bowel 03/10/18 Movement # Bowel Movements 1 Estimated Stool Amount Medium # Voids 1 1 Laboratory Results - last 24 hr 03/11/18 03/11/18 05:04 05:04 WBC 9.5 RBC 3.07 L Hgb 10.1 L Hct 30 L MCV 96 H MCH 33 H MCHC 34 RDW 14 Plt Count 128 L MPV 9.4 Neut % (Auto) 66.8 Lymph % (Auto) 17.7 [place] % (Auto) 11.9 Eos % (Auto) 3.2 Baso % (Auto) 0.4 Absolute Neuts (auto) 6.3 Absolute Lymphs (auto) 1.7 Absolute Monos (auto) 1.1 H Absolute Eos (auto) 0.3 Absolute Basos (auto) 0 Absolute Nucleated RBC 0 Nucleated RBC % 0 Sodium 134 L Potassium 4.3 Chloride 104 Carbon Dioxide 24 Anion Gap 6 BUN 23 Creatinine 0.99 Est GFR ( Amer) 86.5 Est GFR (Non-Af Amer) 71.5 BUN/Creatinine Ratio 23.2 H Glucose 104 H Calcium 8.2 L Magnesium 2.2 Vitamin B12 339 Folate > 20.00 Stood from chair to stand with walker independently Right hip dressings were changed, wound benign, no drainage, no erythema + DF/PF right ankle calf NT and soft sensation and circulation remain intact distally 4x4s and Tape applied to incision Assessment: []s/p Right total hip arthroplasty for femoral neck fracture POD #2 Plan: []Ok from orthopedic standpoint for discharge to home today Continue with Lovenox 40 mg qd for 1 month post op He does not feel he needs narcotic rx on discharge, Tylenol is helping mild pain Follow up with Dr. Ortega in 10-14 days
[2018-03-11 11:49] VITALS: BP 116/63
[2018-03-11] MEDS: Enoxaparin(*) 40 MG/0.4 ML SYR SUBCUT SCH (12:33)
--- NOTE | 2018-03-12 10:12 | DS ---
AMENDED REPORT NOW INCLUDES DESIGNATED COSIGNER - ESIGNED BEFORE ADJUSTMENTS CC: Dr. Irving Zabala; Dr. Chester; Dr. Rodriguez; Dr. Ortega * DISCHARGE SUMMARY: DATE OF ADMISSION: 03/08/18 DATE OF DISCHARGE: 03/11/18 PRIMARY CARE PROVIDER: Dr. Irving Zabala; Dr. Chester ATTENDING PHYSICIAN: Dr. Nguyen *(dictated by Pancho Patiño NP) PRIMARY DIAGNOSES: 1. Status post right total hip replacement. 2. Right hip fracture, status post fall. SECONDARY DIAGNOSES: 1. Benign prostatic hypertrophy. 2. Polymyalgia rheumatica. CONSULTATIONS WHILE IN THE HOSPITAL: Dr. Rodriguez; Dr. Ortega. PROCEDURES WHILE IN THE HOSPITAL: Right total hip replacement. STUDIES WHILE IN THE HOSPITAL: Right femur x-ray, impression: Displaced fracture of the right femoral neck. DISCHARGE HOME MEDICATIONS: New home medications: 1. Lovenox 40 mg subcu daily x4 weeks. Continued home medications: 1. Omeprazole 20 mg p.o. at bedtime. 2. Colchicine 1 tab p.o. daily. 3. Prednisone 1 mg p.o. daily. 4. Levothyroxine 25 mcg p.o. daily. 5. Proscar 5 mg p.o. daily. 6. Vitamin D 1000 units p.o. daily. 7. Flomax 0.8 mg p.o. b.i.d. 8. Metamucil 2 teaspoons p.o. daily. Changed home medications: No home meds changed. Discontinued home medications: No home meds discontinued. HISTORY OF PRESENT ILLNESS/HOSPITAL COURSE: Mr. Muñoz is an 87-year-old male , who presented to the ED after a mechanical fall while working outside. Mr. Muñoz is in excellent state of health, he exercises on a regular basis, who was taking a battery out of the backhoe when he slipped and fell on the ice onto his right side and sustained a right femoral neck fracture. Please see the history and physical dictated by Dina Kennedy NP for complete summary of the events leading up to hospitalization. In short, the patient was admitted after he was found to have a right femur neck fracture. Ortho was consulted. Patient was a candidate for surgery and underwent a right total hip replacement on 03/09/18. During this hospitalization, patient has done remarkably well with physical therapy and with pain control. Patient's pain is currently controlled with Tylenol p.o. and he declines other pain medication. Today, on postop day 2, the patient was successfully managing stairs, walking significant distances, and is able to talk through transfers in and out of the car. Patient has also remained hemodynamically stable. His current blood pressure is 116/63, O2 sat 100% on room air, respirations 16, heart rate 72, temp 98.3. LABORATORY DATA: WBC 9.4, hemoglobin 10.1, hematocrit 30, MCV 96, MCH 33, platelet 128. Chemistry: Sodium 134, potassium 4.3, chloride 104, carbon dioxide 24, BUN 23, creatinine 0.99, glucose 104, magnesium 2.2, vitamin B12 339 , folate greater than 20, TSH is 2.20. REVIEW OF SYSTEMS: The patient reports pain in the right hip is 1/10. Denies calf pain, weakness, chest pain, shortness of breath, dizziness, cough, nausea, vomiting, diarrhea. A 12-point review of system is completed and all others negative. PHYSICAL EXAM: General: Mr. Muñoz is a well-developed, well-nourished elderly man sitting up in a recliner, in no acute distress. Appears younger than his stated age. HEENT: EOMs intact. Sclerae within normal limits. PERRLA. Oral mucosa is moist and without lesions. Neck: Full range of motion. Tracheal midline. Respiratory: Symmetrical chest expansion. No accessory muscle use. Lung sounds are clear to auscultation. No rhonchi, wheezes, or rales. CV: Regular rate and rhythm. S1/S2 present. No murmurs, rubs or gallops. No JVD. No edema. Lymphadenopathy: No cervical or supraclavicular lymphadenopathy. Abdomen: Soft, nontender to palpation. Bowel sounds normoactive throughout. Extremities: No edema, no clubbing, or cyanosis. Pedal pluses +2 bilaterally. Musculoskeletal: Full range of motion. Neuro: Awake, alert, oriented x4. Moves all extremities. No focal deficits noted. Skin: Skin is grossly intact without lesions. Dressing to right hip is clean, dry, and intact. DISCHARGE PLAN/FOLLOWUP: 1. Right total hip replacement: Follow up with Dr. Ortega in 10 to 14 days. Patient has at home PT and VNS lined up. 2. Anticoagulation: Patient is to be on Lovenox 40 mg daily for 1 month. Prescription has been sent to [facility]. Lovenox teaching was completed by nurse and per nurse, patient administered his own injection today. 3. BPH: Patient can continue meds as same from home. 4. Pain: Patient to continue Tylenol for pain control. Encouraged the patient to call if pain needs change. 5. Education: Patient educated on new or worsening symptoms when to return to the ER. 6. PCP: Patient to follow up with his primary care provider in 2 to 3 weeks. 7. PMR: Patient to follow up with Dr. Rodrigues as planned. This is a summarized report of a complex medical history and hospital stay. For further details please see the entire medical record. TIME SPENT: Approximately 45 minutes were spent on this discharge, greater than half of time was spent face to face to the patient discussing discharge plans and instructions. I reviewed with my attending Dr. Yohana Nguyen and she agrees with my plan. PANCHO PATIÑO, PALMA [id number]/CPS #: [id number] NORM
== END 2018-03-11 16:00 | disposition home or self-care (01) | DRG 470 ==
LOC: ED 15:48 → SSU 18:38
PROVIDERS: ADMIT Nurse Practitioner Acute Care; ATTEND Internal Medicine
PROC: 0SR904A Replacement of Right Hip Joint with Ceramic on Polyethylene Synthetic Substitute, Uncemented, Open Approach (ICD-10-PCS; principal; 2018-03-09 09:00)
DX: S72.001A Fracture of unspecified part of neck of right femur, initial encounter for closed fracture (principal); W00.2XXA Other fall from one level to another due to ice and snow, initial encounter; D53.9 Nutritional anemia, unspecified; Y92.096 Garden or yard of other non-institutional residence as the place of occurrence of the external cause; D75.89 Other specified diseases of blood and blood-forming organs; M16.0 Bilateral primary osteoarthritis of hip; M17.0 Bilateral primary osteoarthritis of knee; M85.861 Other specified disorders of bone density and structure, right lower leg; M25.751 Osteophyte, right hip; N40.0 Benign prostatic hyperplasia without lower urinary tract symptoms; K21.9 Gastro-esophageal reflux disease without esophagitis; Z66 Do not resuscitate; M35.3 Polymyalgia rheumatica; E03.9 Hypothyroidism, unspecified; K59.00 Constipation, unspecified; Z79.52 Long term (current) use of systemic steroids; Z79.899 Other long term (current) drug therapy
CPT/HCPCS: 36415; 80048; 80053; 81003; 82607; 82746; 83735; 84100; 84443; 85025; 93005; 99284; A9270-GY; G8978-GP-CL; G8979-GP-CJ; G8987-GO-CI; G8987-GO-CJ; G8988-GO-CI; J0461; J0690; J1100; J1170; J1644; J1650; J1885; J2250; J2405; J2704; J3010; J3475